=== PATIENT | male | born 1945 | race Caucasian/White ===

== ENCOUNTER 2020-06-16 17:12 | Emergency (ER) | payer OTHER ==
[~2020-06-16] VITALS: Ht 188 cm; Wt 83.9 kg
[~2020-06-16 17:12] MED LIST: Amlodipine Besy10 MG PO; GABA100 PO; METO50ER PO
[2020-06-16 18:00] LABS: BASOPHILS ABSOLUTE AUTO 0.02 K/mm3 (0.00-0.23); BASOPHILS PERCENT AUTO 0 % (0-2); EOSINOPHILS PERCENT AUTO 0 % (0-6); Hematocrit 35.3 % (37.0-53.0); Hemoglobin 11.4 g/dL (13.5-17.5); IMMATURE GRAN ABSOLUTE AUTO 0.08 K/mm3 (0.00-0.10); IMMATURE GRAN PERCENT AUTO 1 % (0-1); LYMPHOCYTES ABSOLUTE AUTO 1.37 K/mm3 (0.84-5.20); LYMPHOCYTES PERCENT AUTO 16 % (21-46); MONOCYTES PERCENT AUTO 8 % (4-13); Mean Corpuscular HGB 29.3 pg (26.0-34.0); Mean Corpuscular HGB Conc 32.3 g/dL (31.5-36.5); Mean Corpuscular Volume 91 fL (80-100); Mean Platelet Volume 8.9 fL (9.1-12.4); NEUTROPHILS PERCENT AUTO 75 % (41-73); Platelet Count 330 K/mm3 (150-400); RDW Coefficient Variation 13.8 % (11.7-14.2); RDW Standard Deviation 46.6 fL (35.1-46.3); Red Blood Cell Count 3.89 M/mm3 (4.30-5.90); White Blood Cell Count 8.77 K/mm3 (4.00-11.30)
[2020-06-16] MEDS ORDERED: LEVSOD150 PO (18:39)
[2020-06-16] MEDS ORDERED: LOSA50 PO ×2 (18:39→18:42)
[2020-06-16] MEDS ORDERED: SYNTHROID50 MCG PO (18:42)
[2020-06-16] MEDS ORDERED: METO50 PO (18:42)
[2020-06-16] MEDS ORDERED: PREGABALIN300 MG PO (18:42)
[2020-06-16 18:44] LABS: Alanine Aminotransfer (ALT/SGP 98 U/L (12-78); Albumin, Blood 2.4 g/dL (3.4-5.0); Albumin/Globulin Ratio 0.6 (0.8-1.8); Alk Phos 107 U/L (50-136); Anion Gap 4 mmol/L (6-16); Aspartate Aminotrans (AST/SGOT 37 U/L (12-37); Bilirubin, Total 0.5 mg/dL (0.1-1.0); Blood Urea Nitrogen 20 mg/dL (8-24); Bun/Creatinine Ratio 23.5 (12.0-20.0); CO2, Blood 29 mmol/L (21-32); Calcium, Blood 8.6 mg/dL (8.5-10.1); Chloride, Blood 105 mmol/L (98-108); Creatinine, Blood 0.85 mg/dL (0.60-1.20); Globulin, Blood 3.8 g/dL (2.2-4.0); Glomerular Filtration Rate >60 (60-); Glucose, Blood 121 mg/dL (70-99); Potassium, Blood 4.5 mmol/L (3.5-5.5); Sodium, Blood 138 mmol/L (136-145); Total Protein, Blood 6.2 g/dL (6.4-8.2)
[2020-06-16] MEDS ORDERED: AMOCLA875 PO (20:25)
== END 2020-06-16 20:45 | disposition home or self-care (01) ==
LOC: ER 17:12
PROVIDERS: Physician Assistant
DX: L03.116 Cellulitis of left lower limb (principal); S81.802A Unspecified open wound, left lower leg, initial encounter; Z79.899 Other long term (current) drug therapy; W01.0XXA Fall on same level from slipping, tripping and stumbling without subsequent striking against object, initial encounter
CPT/HCPCS: 36415; 80053; 83605; 85025; 93971; 96365; 99284-25; J0696

== ENCOUNTER 2023-01-03 01:52 | Day surgery (SDC) | payer OTHER ==
[~2023-01-03 01:52] MED LIST changes: +AMOCLA875 PO; +LEVSOD150 PO; +LOSA50 PO; +METO50 PO; +PREGABALIN300 MG PO; +SYNTHROID50 MCG PO
== END 2023-01-03 23:00 | disposition home or self-care (01) ==
LOC: WOUND 01:52
DX: L03.116 Cellulitis of left lower limb (principal); L97.929 Non-pressure chronic ulcer of unspecified part of left lower leg with unspecified severity; R60.0 Localized edema; I10 Essential (primary) hypertension
CPT/HCPCS: A9270; G0463

== ENCOUNTER 2023-01-22 15:06 | Inpatient (IN) | payer OTHER ==
[~2023-01-22] VITALS: Ht 188 cm; Wt 90.7 kg
[2023-01-22 15:35] LABS: BASOPHILS ABSOLUTE AUTO 0.04 K/mm3 (0.00-0.23); BASOPHILS PERCENT AUTO 0 % (0-2); EOSINOPHILS PERCENT AUTO 0 % (0-6); Hemoglobin 11.5 g/dL (13.5-17.5); IMMATURE GRAN ABSOLUTE AUTO 0.18 K/mm3 (0.00-0.10); IMMATURE GRAN PERCENT AUTO 1 % (0-1); LYMPHOCYTES ABSOLUTE AUTO 1.14 K/mm3 (0.84-5.20); LYMPHOCYTES PERCENT AUTO 6 % (21-46); MONOCYTES ABSOLUTE AUTO 0.51 K/mm3 (0.16-1.47); MONOCYTES PERCENT AUTO 3 % (4-13); Mean Corpuscular HGB 25.6 pg (26.0-34.0); Mean Corpuscular HGB Conc 31.1 g/dL (31.5-36.5); Mean Corpuscular Volume 82 fL (80-100); Mean Platelet Volume 8.5 fL (9.1-12.4); NEUTROPHILS ABSOLUTE AUTO 17.08 K/mm3 (1.96-9.15); NEUTROPHILS PERCENT AUTO 90 % (41-73); Platelet Count 252 K/mm3 (150-400); RDW Coefficient Variation 16.6 % (11.7-14.2); RDW Standard Deviation 50.4 fL (35.1-46.3); Red Blood Cell Count 4.49 M/mm3 (4.30-5.90); White Blood Cell Count 18.95 K/mm3 (4.00-11.30)
[2023-01-22 15:47] LABS: Albumin, Blood 2.8 g/dL (3.4-5.0); Albumin/Globulin Ratio 0.7 (0.8-1.8); Bilirubin, Total 0.8 mg/dL (0.1-1.0); Bun/Creatinine Ratio 19.9 (12.0-20.0); Calcium, Blood 8.4 mg/dL (8.5-10.1); Creatinine, Blood 1.76 mg/dL (0.60-1.20); Globulin, Blood 3.9 g/dL (2.2-4.0); Potassium, Blood 3.8 mmol/L (3.5-5.5); Total Protein, Blood 6.7 g/dL (6.4-8.2)
[2023-01-22 18:37] VITALS: BP 125/65
--- NOTE | 2023-01-22 18:45 | NUR ---
REceived pt to room 339 at 1825. Awake and alert X3, denies pain. VSS. Resp even nonlabored. Incontinent of B&B. Brief changed with smear of stool. Buttock exoriated, scrotal swelling. redness and sores noted. [id number] wound to left multani noted. Pictures obtained with consent from pt. Will report to [place] Rn. Pt girlfriend Toma at bedside.
[2023-01-22 19:44] VITALS: BP 131/57
[2023-01-22] MEDS ORDERED: TOPROL XL50 M1 PO (23:01)
[2023-01-23 04:28] LABS: BASOPHILS ABSOLUTE AUTO 0.05 K/mm3 (0.00-0.23); BASOPHILS PERCENT AUTO 0 % (0-2); EOSINOPHILS ABSOLUTE AUTO 0.06 K/mm3 (0.00-0.68); EOSINOPHILS PERCENT AUTO 0 % (0-6); Hematocrit 33.4 % (37.0-53.0); Hemoglobin 10.5 g/dL (13.5-17.5); IMMATURE GRAN PERCENT AUTO 1 % (0-1); LYMPHOCYTES ABSOLUTE AUTO 1.04 K/mm3 (0.84-5.20); LYMPHOCYTES PERCENT AUTO 6 % (21-46); MONOCYTES ABSOLUTE AUTO 0.45 K/mm3 (0.16-1.47); MONOCYTES PERCENT AUTO 3 % (4-13); Mean Corpuscular HGB 25.6 pg (26.0-34.0); Mean Corpuscular HGB Conc 31.4 g/dL (31.5-36.5); Mean Corpuscular Volume 82 fL (80-100); Mean Platelet Volume 8.7 fL (9.1-12.4); NEUTROPHILS ABSOLUTE AUTO 15.05 K/mm3 (1.96-9.15); NEUTROPHILS PERCENT AUTO 90 % (41-73); Platelet Count 215 K/mm3 (150-400); RDW Standard Deviation 50.4 fL (35.1-46.3); White Blood Cell Count 16.75 K/mm3 (4.00-11.30)
[2023-01-23 04:48] VITALS: BP 107/53
[2023-01-23 04:51] LABS: Albumin, Blood 2.2 g/dL (3.4-5.0); Anion Gap 8 mmol/L (6-16); Blood Urea Nitrogen 31 mg/dL (8-24); Bun/Creatinine Ratio 26.7 (12.0-20.0); CO2, Blood 24 mmol/L (21-32); Chloride, Blood 104 mmol/L (98-108); Creatinine, Blood 1.16 mg/dL (0.60-1.20); Glomerular Filtration Rate 65 (60-); Glucose, Blood 127 mg/dL (70-99); Phosphorus, Blood 3.1 mg/dL (2.5-4.9); Potassium, Blood 3.3 mmol/L (3.5-5.5); Sodium, Blood 136 mmol/L (136-145)
--- NOTE | 2023-01-23 05:08 | NUR ---
SHIFT SUMMARY NOC PT A/O X 3-4. PLEASANT AND COOPERATIVE WITH CARE. PT EDUCATED ON [facility] IGNITION/EXPLOSIVES NON SMOKING POLICY. PT ADMIT FROM ED AT SHIFT CHANGE FOR CELLULITIS IN LLE ALONG WITH LEFTY. PT RECEIVING ANCEF ABX AND 1L 1/2 NS INFUSING @ 100 ML/HR TO IMPROVE RENAL FUNCTION. PT WAS INCONTINENT OF URINE/BM X 2, AND REPORTS BEING CONTINENT BASELINE AT HOME. PT UNABLE TO MOVE LLE WHICH HAS 10CM X 10CM VENOUS ULCER OPEN TO AIR, IT IS SWOLLEN, RED AND HOT TO TOUCH. AWAITING AM LABS FOR RENAL IMPROVEMENT. PT IS CURRENTLY RESTING WITH BED IN LOWEST POSITION, AND CALL LIGHT eCullet.
[2023-01-23 07:36] VITALS: BP 117/57
[2023-01-23 15:05] VITALS: BP 105/53
--- NOTE | 2023-01-23 17:20 | NUR ---
SHIFT SUMMARY: Pt remains A&O X3 this shift. VSS, afebrile. Denies pain. Resp even nonlabored on RA. Incont of B&B. Tolerating diet. Q 2 hour turn. Wound care provided to LLE. DSG CDI. Buttocks excoriation has subsided. Blood cultures pending. No acute distress or c/o. Will continue to monitor.
[2023-01-23 19:43] VITALS: BP 126/59
[2023-01-24 04:52] VITALS: BP 159/77
[2023-01-24 05:26] LABS: BASOPHILS ABSOLUTE AUTO 0.02 K/mm3 (0.00-0.23); BASOPHILS PERCENT AUTO 0 % (0-2); EOSINOPHILS ABSOLUTE AUTO 0.11 K/mm3 (0.00-0.68); EOSINOPHILS PERCENT AUTO 1 % (0-6); Hematocrit 33.4 % (37.0-53.0); Hemoglobin 10.5 g/dL (13.5-17.5); IMMATURE GRAN ABSOLUTE AUTO 0.03 K/mm3 (0.00-0.10); IMMATURE GRAN PERCENT AUTO 0 % (0-1); LYMPHOCYTES ABSOLUTE AUTO 1.31 K/mm3 (0.84-5.20); LYMPHOCYTES PERCENT AUTO 12 % (21-46); MONOCYTES ABSOLUTE AUTO 0.53 K/mm3 (0.16-1.47); MONOCYTES PERCENT AUTO 5 % (4-13); Mean Corpuscular HGB 25.6 pg (26.0-34.0); Mean Corpuscular HGB Conc 31.4 g/dL (31.5-36.5); Mean Corpuscular Volume 82 fL (80-100); Mean Platelet Volume 8.6 fL (9.1-12.4); NEUTROPHILS PERCENT AUTO 82 % (41-73); Platelet Count 197 K/mm3 (150-400); RDW Coefficient Variation 16.6 % (11.7-14.2); RDW Standard Deviation 49.1 fL (35.1-46.3)
[2023-01-24 06:00] LABS: Albumin, Blood 2.2 g/dL (3.4-5.0); Anion Gap 4 mmol/L (6-16); Blood Urea Nitrogen 24 mg/dL (8-24); Bun/Creatinine Ratio 29.2 (12.0-20.0); CO2, Blood 28 mmol/L (21-32); Calcium, Blood 8.4 mg/dL (8.5-10.1); Chloride, Blood 99 mmol/L (98-108); Creatinine, Blood 0.82 mg/dL (0.60-1.20); Glomerular Filtration Rate 90 (60-); Glucose, Blood 102 mg/dL (70-99); Phosphorus, Blood 2.1 mg/dL (2.5-4.9); Potassium, Blood 3.6 mmol/L (3.5-5.5); Sodium, Blood 131 mmol/L (136-145)
--- NOTE | 2023-01-24 06:10 | NUR ---
HYPERTENSIVE, OTHERWISE VSS, AO, PLEASANT. BM THIS MORNING, SOFT/LOOSE. BLOOD CULTURE STILL PENDING. ANTIBIOTICS GIVEN ORDERED. UNEVENTFUL NIGHT. DENIES PAIN, DISCOMFORT. FIRE SAFETY EDUCATION COMPLETED, EXPRESSES UNDERSTANDING.
[2023-01-24 07:15] VITALS: BP 142/69
[2023-01-24 15:00] VITALS: BP 129/67
--- NOTE | 2023-01-24 18:04 | NUR ---
SHIFT SUMMARY PT IS ALERT AND ORIENTED X4. CALM AND COOPERATIVE. PHYSICAL THERAPY WAS IN WITH PT TODAY. PLS SEE NOTES. PT HAS DENIED PAIN AND ANY SOB. PT DENIES SMOKING ANY PRODUCT, PT IS NOT CURRENTLY USING OXYGEN. DURING HOURLY ROUNDING, EDUCATION PROVIDED ON RISKS OF INJURY WHILE USING AN IGNITION SOURCE AROUND OXYGEN. PT VERBALIZES UNDERSTANDING. PT DENIES HAVING ANY IGNITION SOURCES ON HIM OR IN HIS ITEMS. NO VISITORS THIS SHIFT. NO ACUTE CHANGES THIS SHIFT. PROVIDED WOUND CARE ORDERED.
[2023-01-24 19:33] VITALS: BP 120/58
[2023-01-25 02:33] VITALS: BP 132/72
--- NOTE | 2023-01-25 05:07 | NUR ---
SHIFT SUMMARY PATIENT ALERT, PLEASANT AND COOPERATIVE. NO C/O PAIN NOR DISCOMFORT STATED THIS SHIFT. LLE UNDER DSG, C/D/I. CONTINUES ON IV ABX WITHOUT ANY APPARENT ASE NOTED. PIV TO RIGHT AC, SL, PATENT, FLUSHES WELL. PATIENT EDUCATED RE IGNITION SOURCES AND RISK OF INJURY WHILE OXYGEN IN USE, VERBALIZED UNDERSTANDING, DENIES SMOKING. NO ACUTE CHANGES OVERNIGHT, BED LOW, CALL LIGHT IN REACH.
[2023-01-25 05:42] LABS: BASOPHILS ABSOLUTE AUTO 0.02 K/mm3 (0.00-0.23); BASOPHILS PERCENT AUTO 0 % (0-2); EOSINOPHILS PERCENT AUTO 1 % (0-6); Hematocrit 34.7 % (37.0-53.0); Hemoglobin 10.9 g/dL (13.5-17.5); IMMATURE GRAN ABSOLUTE AUTO 0.05 K/mm3 (0.00-0.10); IMMATURE GRAN PERCENT AUTO 1 % (0-1); LYMPHOCYTES ABSOLUTE AUTO 1.24 K/mm3 (0.84-5.20); LYMPHOCYTES PERCENT AUTO 17 % (21-46); MONOCYTES ABSOLUTE AUTO 0.42 K/mm3 (0.16-1.47); MONOCYTES PERCENT AUTO 6 % (4-13); Mean Corpuscular HGB 25.2 pg (26.0-34.0); Mean Corpuscular HGB Conc 31.4 g/dL (31.5-36.5); Mean Corpuscular Volume 80 fL (80-100); Mean Platelet Volume 8.8 fL (9.1-12.4); NEUTROPHILS ABSOLUTE AUTO 5.35 K/mm3 (1.96-9.15); NEUTROPHILS PERCENT AUTO 75 % (41-73); Platelet Count 230 K/mm3 (150-400); RDW Coefficient Variation 16.4 % (11.7-14.2); RDW Standard Deviation 48.2 fL (35.1-46.3); Red Blood Cell Count 4.32 M/mm3 (4.30-5.90); White Blood Cell Count 7.18 K/mm3 (4.00-11.30)
[2023-01-25 06:08] LABS: Bun/Creatinine Ratio 23.8 (12.0-20.0); Calcium, Blood 8.7 mg/dL (8.5-10.1); Creatinine, Blood 0.76 mg/dL (0.60-1.20); Potassium, Blood 3.7 mmol/L (3.5-5.5)
[2023-01-25 07:41] VITALS: BP 122/69
[2023-01-25 14:51] VITALS: BP 136/66
--- NOTE | 2023-01-25 18:21 | NUR ---
SHIFT SUMMARY: NO ACUTE EVENTS. DENIED PAIN. LLE DUSKY AND COOL, DRESSING CHANGED THIS AFTERNOON. WOUND BED HAS DARK RED BLOODY EXUDATE. INCONTINENT OF BLADDER MOST OF THE TIME, ATTENDS IN PLACE. TOLERATING PO INTAKE, GOOD APPETITE.
[2023-01-25 19:51] VITALS: BP 126/59
[2023-01-26 02:52] VITALS: BP 133/60
[2023-01-26 05:01] LABS: BASOPHILS ABSOLUTE AUTO 0.03 K/mm3 (0.00-0.23); BASOPHILS PERCENT AUTO 0 % (0-2); EOSINOPHILS ABSOLUTE AUTO 0.16 K/mm3 (0.00-0.68); EOSINOPHILS PERCENT AUTO 2 % (0-6); Hematocrit 34.1 % (37.0-53.0); Hemoglobin 10.9 g/dL (13.5-17.5); IMMATURE GRAN ABSOLUTE AUTO 0.07 K/mm3 (0.00-0.10); IMMATURE GRAN PERCENT AUTO 1 % (0-1); LYMPHOCYTES ABSOLUTE AUTO 1.58 K/mm3 (0.84-5.20); LYMPHOCYTES PERCENT AUTO 23 % (21-46); MONOCYTES ABSOLUTE AUTO 0.49 K/mm3 (0.16-1.47); MONOCYTES PERCENT AUTO 7 % (4-13); Mean Corpuscular HGB 25.5 pg (26.0-34.0); Mean Corpuscular Volume 80 fL (80-100); Mean Platelet Volume 8.6 fL (9.1-12.4); NEUTROPHILS ABSOLUTE AUTO 4.53 K/mm3 (1.96-9.15); NEUTROPHILS PERCENT AUTO 66 % (41-73); Platelet Count 251 K/mm3 (150-400); RDW Coefficient Variation 16.4 % (11.7-14.2); RDW Standard Deviation 46.9 fL (35.1-46.3); Red Blood Cell Count 4.27 M/mm3 (4.30-5.90); White Blood Cell Count 6.86 K/mm3 (4.00-11.30)
[2023-01-26 05:32] LABS: Bun/Creatinine Ratio 24.4 (12.0-20.0); Calcium, Blood 8.6 mg/dL (8.5-10.1); Creatinine, Blood 0.7 mg/dL (0.60-1.20); Potassium, Blood 3.9 mmol/L (3.5-5.5)
[2023-01-26 08:01] VITALS: BP 137/70
[2023-01-26] MEDS ORDERED: DULO60 PO (13:36)
[2023-01-26] MEDS ORDERED: HYDCHL25 PO (13:37)
[2023-01-26] MEDS ORDERED: Cefadroxil500 MG PO (13:37)
--- NOTE | 2023-01-26 15:23 | NUR ---
SHIFT SUMMARY AND DISCHARGE PATIENT ADMITTED WITH CELLULITIS. PATIENT HAS A CHRONIC WOUND TO [facility] THAT HAS BEEN FOLLOWED BY THE WOUND CLINIC. REPORTS WOUND HAS IMPROVED AND SWELLING GREATLY IMPROVED. SKIN AROUND WOUND SCALY AND DRY. SKIN CLEANSED WITH WOUND CLEANSER, PATTED DRY, CALCIUM ALGINATE TO WOUND BED AND BARRIER CREAM APPLIED TO SKIN AROUND WOUND. LEG WRAPPED WITH KERLIX AND NETTING APPLIED OVER KERLIX. ASSISTED PATIENT WITH DRESSING FOR DISCHARGE. IV DC'D AND CATHETER INTACT. DISCHARGE INSTRUCTIONS REVIEWED WITH PATIENT AND . RX TO BE PICKED UP AT [facility]. HOME HEALTH TO FOLLOW PATIENT AFTER DISCHARGE. FAMILY INFORMED. BELONGINGS GIVEN TO FAMILY AND ROOM CHECK DONE PRIOR TO DISCHARGE.
== END 2023-01-26 15:25 | disposition home health service (06) | DRG 603 ==
LOC: ER 15:06 → MEDS 15:07 → ENPENDDIS 01-26 13:32 → MEDS 01-26 15:25
PROVIDERS: Emergency Medicine; Internal Medicine; ADMIT Family Medicine
DX: L03.116 Cellulitis of left lower limb (principal); N17.9 Acute kidney failure, unspecified; G62.9 Polyneuropathy, unspecified; E03.9 Hypothyroidism, unspecified; F41.9 Anxiety disorder, unspecified; I87.2 Venous insufficiency (chronic) (peripheral); R00.0 Tachycardia, unspecified; S01.21XA Laceration without foreign body of nose, initial encounter; X58.XXXA Exposure to other specified factors, initial encounter; Z79.890 Hormone replacement therapy; Z98.890 Other specified postprocedural states; Z79.899 Other long term (current) drug therapy
CPT/HCPCS: 36415; 73590; 80048; 80053; 80069; 83605; 83735; 85025; 87040; 93005; 93010; 96361; 96365; 96366; 96367; 96372; 96375; 96376; 97110; 97110-CQ; 97161; 97166; 97530; 97535; 99285-25; A9270; G0378; J0690; J1644; J3370; J3480; J7030; J7050

== ENCOUNTER 2023-02-02 01:45 | Day surgery (SDC) | payer OTHER ==
[~2023-02-02 01:45] MED LIST changes: +Cefadroxil500 MG PO; +DULO60 PO; +HYDCHL25 PO; +TOPROL XL50 M1 PO
== END 2023-02-02 22:46 | disposition home or self-care (01) ==
LOC: WOUND 01:45
DX: L03.116 Cellulitis of left lower limb (principal); L97.929 Non-pressure chronic ulcer of unspecified part of left lower leg with unspecified severity; R60.0 Localized edema; I10 Essential (primary) hypertension; I87.2 Venous insufficiency (chronic) (peripheral); I87.312 Chronic venous hypertension (idiopathic) with ulcer of left lower extremity
CPT/HCPCS: A9270

== ENCOUNTER 2023-02-11 05:54 | Day surgery (SDC) | payer OTHER | END 2023-02-11 22:33 | disposition home or self-care (01) | LOC: WOUND | DX: L03.116 Cellulitis of left lower limb (principal); L97.929 Non-pressure chronic ulcer of unspecified part of left lower leg with unspecified severity; I87.312 Chronic venous hypertension (idiopathic) with ulcer of left lower extremity; R60.0 Localized edema; I10 Essential (primary) hypertension; I87.2 Venous insufficiency (chronic) (peripheral) | CPT/HCPCS: 87071; 87075; 87077; 87186; 87205; A9270; G0463 ==

== ENCOUNTER 2023-02-24 02:42 | Day surgery (SDC) | payer OTHER | END 2023-02-24 23:33 | disposition home or self-care (01) | LOC: WOUND 02:42 | DX: I87.312 Chronic venous hypertension (idiopathic) with ulcer of left lower extremity (principal); L97.822 Non-pressure chronic ulcer of other part of left lower leg with fat layer exposed; L03.116 Cellulitis of left lower limb; R60.0 Localized edema; I87.2 Venous insufficiency (chronic) (peripheral); I10 Essential (primary) hypertension | CPT/HCPCS: A9270; G0463 ==

== ENCOUNTER 2023-03-03 01:14 | Day surgery (SDC) | payer OTHER | END 2023-03-03 22:55 | disposition home or self-care (01) | LOC: WOUND 01:14 | DX: I87.312 Chronic venous hypertension (idiopathic) with ulcer of left lower extremity (principal); L97.822 Non-pressure chronic ulcer of other part of left lower leg with fat layer exposed; R60.0 Localized edema; L03.116 Cellulitis of left lower limb; I10 Essential (primary) hypertension; I87.2 Venous insufficiency (chronic) (peripheral) | CPT/HCPCS: A9270 ==

== ENCOUNTER 2023-03-10 04:03 | Day surgery (SDC) | payer OTHER | END 2023-03-10 23:17 | disposition home or self-care (01) | LOC: WOUND 04:03 | DX: I87.312 Chronic venous hypertension (idiopathic) with ulcer of left lower extremity (principal); L97.822 Non-pressure chronic ulcer of other part of left lower leg with fat layer exposed; R60.0 Localized edema; L03.116 Cellulitis of left lower limb; I10 Essential (primary) hypertension; I87.2 Venous insufficiency (chronic) (peripheral) | CPT/HCPCS: A9270; G0463 ==

== ENCOUNTER 2023-03-17 00:17 | Day surgery (SDC) | payer OTHER | END 2023-03-17 22:41 | disposition home or self-care (01) | LOC: WOUND 00:17 | DX: I87.312 Chronic venous hypertension (idiopathic) with ulcer of left lower extremity (principal); S81.802A Unspecified open wound, left lower leg, initial encounter; L03.116 Cellulitis of left lower limb; I10 Essential (primary) hypertension; X58.XXXA Exposure to other specified factors, initial encounter | CPT/HCPCS: A9270; G0463 ==

== ENCOUNTER 2023-03-24 03:46 | Day surgery (SDC) | payer OTHER | END 2023-03-24 22:40 | disposition home or self-care (01) | LOC: WOUND 03:46 | DX: L03.116 Cellulitis of left lower limb (principal); I87.312 Chronic venous hypertension (idiopathic) with ulcer of left lower extremity; L97.822 Non-pressure chronic ulcer of other part of left lower leg with fat layer exposed; R60.0 Localized edema; I10 Essential (primary) hypertension; I87.2 Venous insufficiency (chronic) (peripheral) | CPT/HCPCS: A9270 ==

== ENCOUNTER 2023-03-31 01:37 | Day surgery (SDC) | payer OTHER | END 2023-03-31 22:36 | disposition home or self-care (01) | LOC: WOUND 01:37 | DX: L03.116 Cellulitis of left lower limb (principal); L97.929 Non-pressure chronic ulcer of unspecified part of left lower leg with unspecified severity; I87.312 Chronic venous hypertension (idiopathic) with ulcer of left lower extremity; R60.0 Localized edema; I10 Essential (primary) hypertension; I87.2 Venous insufficiency (chronic) (peripheral) | CPT/HCPCS: A9270 ==

== ENCOUNTER 2023-04-14 02:04 | Day surgery (SDC) | payer OTHER | END 2023-04-14 22:37 | disposition home or self-care (01) | LOC: WOUND 02:04 | DX: L03.116 Cellulitis of left lower limb (principal); I87.312 Chronic venous hypertension (idiopathic) with ulcer of left lower extremity; L97.822 Non-pressure chronic ulcer of other part of left lower leg with fat layer exposed; I10 Essential (primary) hypertension; I87.2 Venous insufficiency (chronic) (peripheral) | CPT/HCPCS: 87071; 87075; 87077; 87186; 87205; A9270; G0463 ==

== ENCOUNTER 2023-04-21 03:11 | Day surgery (SDC) | payer OTHER | END 2023-04-21 23:03 | disposition home or self-care (01) | LOC: WOUND 03:11 | DX: I87.312 Chronic venous hypertension (idiopathic) with ulcer of left lower extremity (principal); L97.929 Non-pressure chronic ulcer of unspecified part of left lower leg with unspecified severity; L97.522 Non-pressure chronic ulcer of other part of left foot with fat layer exposed; R60.0 Localized edema; L03.116 Cellulitis of left lower limb; I10 Essential (primary) hypertension; I87.2 Venous insufficiency (chronic) (peripheral) | CPT/HCPCS: A9270; G0463 ==

== ENCOUNTER 2023-04-28 08:00 | Day surgery (SDC) | payer OTHER | END 2023-04-28 23:59 | disposition home or self-care (01) | LOC: WOUND 08:00 | DX: I87.312 Chronic venous hypertension (idiopathic) with ulcer of left lower extremity (principal); L97.422 Non-pressure chronic ulcer of left heel and midfoot with fat layer exposed; L03.116 Cellulitis of left lower limb; I10 Essential (primary) hypertension | CPT/HCPCS: A9270; G0463 ==

== ENCOUNTER 2023-05-05 01:57 | Day surgery (SDC) | payer OTHER | END 2023-05-05 23:30 | disposition home or self-care (01) | LOC: WOUND 01:57 | DX: I87.312 Chronic venous hypertension (idiopathic) with ulcer of left lower extremity (principal); L97.822 Non-pressure chronic ulcer of other part of left lower leg with fat layer exposed; L97.522 Non-pressure chronic ulcer of other part of left foot with fat layer exposed; L03.116 Cellulitis of left lower limb; R60.0 Localized edema; I10 Essential (primary) hypertension; I87.2 Venous insufficiency (chronic) (peripheral) | CPT/HCPCS: A9270 ==

== ENCOUNTER 2023-05-12 03:31 | Day surgery (SDC) | payer OTHER | END 2023-05-12 22:40 | disposition home or self-care (01) | LOC: WOUND 03:31 | DX: I87.312 Chronic venous hypertension (idiopathic) with ulcer of left lower extremity (principal); L97.422 Non-pressure chronic ulcer of left heel and midfoot with fat layer exposed; L03.116 Cellulitis of left lower limb; I10 Essential (primary) hypertension | CPT/HCPCS: A9270; G0463 ==

== ENCOUNTER 2023-06-02 05:22 | Day surgery (SDC) | payer OTHER | END 2023-06-02 22:46 | disposition home or self-care (01) | LOC: WOUND 05:22 | DX: I87.312 Chronic venous hypertension (idiopathic) with ulcer of left lower extremity (principal); L97.522 Non-pressure chronic ulcer of other part of left foot with fat layer exposed; R60.0 Localized edema; L03.116 Cellulitis of left lower limb; I10 Essential (primary) hypertension; I87.2 Venous insufficiency (chronic) (peripheral) | CPT/HCPCS: A9270; G0463 ==

== ENCOUNTER 2023-06-09 02:10 | Day surgery (SDC) | payer OTHER | END 2023-06-09 22:49 | disposition home or self-care (01) | LOC: WOUND 02:10 | DX: I87.312 Chronic venous hypertension (idiopathic) with ulcer of left lower extremity (principal); L97.929 Non-pressure chronic ulcer of unspecified part of left lower leg with unspecified severity; R60.0 Localized edema; L03.116 Cellulitis of left lower limb; I10 Essential (primary) hypertension; I87.2 Venous insufficiency (chronic) (peripheral) | CPT/HCPCS: A9270; G0463 ==

== ENCOUNTER 2023-06-23 02:39 | Day surgery (SDC) | payer OTHER | END 2023-06-23 22:45 | disposition home or self-care (01) | LOC: WOUND 02:39 | DX: I87.312 Chronic venous hypertension (idiopathic) with ulcer of left lower extremity (principal); L97.522 Non-pressure chronic ulcer of other part of left foot with fat layer exposed; L97.829 Non-pressure chronic ulcer of other part of left lower leg with unspecified severity; L03.116 Cellulitis of left lower limb; R60.0 Localized edema; I10 Essential (primary) hypertension; I87.2 Venous insufficiency (chronic) (peripheral) | CPT/HCPCS: A9270; G0463 ==

== ENCOUNTER 2023-06-30 01:26 | Day surgery (SDC) | payer OTHER | END 2023-06-30 22:45 | disposition home or self-care (01) | LOC: WOUND 01:26 | DX: I87.312 Chronic venous hypertension (idiopathic) with ulcer of left lower extremity (principal); L03.116 Cellulitis of left lower limb; L97.522 Non-pressure chronic ulcer of other part of left foot with fat layer exposed; I10 Essential (primary) hypertension | CPT/HCPCS: A9270; G0463 ==

== ENCOUNTER 2023-07-14 04:55 | Day surgery (SDC) | payer OTHER | END 2023-07-14 22:55 | disposition home or self-care (01) | LOC: WOUND 04:55 | DX: I87.312 Chronic venous hypertension (idiopathic) with ulcer of left lower extremity (principal); L97.522 Non-pressure chronic ulcer of other part of left foot with fat layer exposed; L97.822 Non-pressure chronic ulcer of other part of left lower leg with fat layer exposed; L03.116 Cellulitis of left lower limb; R60.0 Localized edema; I10 Essential (primary) hypertension; I87.2 Venous insufficiency (chronic) (peripheral) | CPT/HCPCS: A9270; G0463 ==

== ENCOUNTER 2023-08-19 03:59 | Day surgery (SDC) | payer OTHER | END 2023-08-19 23:28 | disposition home or self-care (01) | LOC: WOUND 03:59 | DX: L03.116 Cellulitis of left lower limb (principal); I87.312 Chronic venous hypertension (idiopathic) with ulcer of left lower extremity; R60.0 Localized edema; I10 Essential (primary) hypertension; I87.2 Venous insufficiency (chronic) (peripheral); L97.522 Non-pressure chronic ulcer of other part of left foot with fat layer exposed | CPT/HCPCS: G0463 ==

== ENCOUNTER 2023-08-25 01:39 | Day surgery (SDC) | payer OTHER | END 2023-08-25 23:15 | disposition home or self-care (01) | LOC: WOUND 01:39 | DX: L03.116 Cellulitis of left lower limb (principal); L97.522 Non-pressure chronic ulcer of other part of left foot with fat layer exposed; I87.312 Chronic venous hypertension (idiopathic) with ulcer of left lower extremity; I10 Essential (primary) hypertension; I87.2 Venous insufficiency (chronic) (peripheral) | CPT/HCPCS: A9270 ==

== ENCOUNTER 2023-09-09 01:53 | Day surgery (SDC) | payer OTHER | END 2023-09-11 23:17 | disposition home or self-care (01) | LOC: WOUND 01:53 | DX: I87.312 Chronic venous hypertension (idiopathic) with ulcer of left lower extremity (principal); L03.116 Cellulitis of left lower limb; L97.422 Non-pressure chronic ulcer of left heel and midfoot with fat layer exposed; I10 Essential (primary) hypertension; I87.2 Venous insufficiency (chronic) (peripheral) | CPT/HCPCS: G0463 ==

== ENCOUNTER 2023-11-24 02:48 | Day surgery (SDC) | payer OTHER ==
[~2023-11-24 02:48] MED LIST changes: +ATOR80 PO; +CLOP75 PO; +ELIQUIS5 M2 PO; +FAMO20 PO; +JARDIANCE10 MG PO; +MUPIROCIN1 G1 TOP; +Pentoxifylline400 MG PO; +SULFAMETHOXAZO1 EAC1 PO; +VISBIOME 112.51 EACH PO
== END 2023-11-24 22:42 | disposition home or self-care (01) ==
LOC: WOUND 02:48
DX: I87.312 Chronic venous hypertension (idiopathic) with ulcer of left lower extremity (principal); L97.522 Non-pressure chronic ulcer of other part of left foot with fat layer exposed; L97.822 Non-pressure chronic ulcer of other part of left lower leg with fat layer exposed; L03.116 Cellulitis of left lower limb; R60.0 Localized edema; I10 Essential (primary) hypertension; I87.2 Venous insufficiency (chronic) (peripheral)
CPT/HCPCS: G0463

== ENCOUNTER 2023-12-01 03:47 | Day surgery (SDC) | payer OTHER ==
[2023-12-01] MEDS ORDERED: Silver Nitr/Potassium Nitrate 1 EA APPL ONE (14:53)
== END 2023-12-01 23:08 | disposition home or self-care (01) ==
LOC: WOUND 03:47
DX: L03.116 Cellulitis of left lower limb (principal); L97.522 Non-pressure chronic ulcer of other part of left foot with fat layer exposed; I87.312 Chronic venous hypertension (idiopathic) with ulcer of left lower extremity; I10 Essential (primary) hypertension; I87.2 Venous insufficiency (chronic) (peripheral)
CPT/HCPCS: A6213; A9270; G0463

== ENCOUNTER 2024-01-12 12:41 | Inpatient (IN) | payer OTHER ==
[~2024-01-12] VITALS: Ht 188 cm; Wt 84.7 kg
[2024-01-12] MEDS ORDERED: NS 1,000 ML IV SCH ×3 (14:15→16:55)
[2024-01-12] MEDS ORDERED: Vancomycin HCL 1,500 MG in NS 265 ML IV ONE (14:15)
[2024-01-12 14:26] LABS: BASOPHILS ABSOLUTE AUTO 0.04 K/mm3 (0.00-0.23); BASOPHILS PERCENT AUTO 1 % (0-2); EOSINOPHILS ABSOLUTE AUTO 0.11 K/mm3 (0.00-0.68); EOSINOPHILS PERCENT AUTO 1 % (0-6); Hematocrit 44.2 % (37.0-53.0); IMMATURE GRAN ABSOLUTE AUTO 0.03 K/mm3 (0.00-0.10); IMMATURE GRAN PERCENT AUTO 0 % (0-1); LYMPHOCYTES PERCENT AUTO 14 % (21-46); MONOCYTES ABSOLUTE AUTO 0.34 K/mm3 (0.16-1.47); MONOCYTES PERCENT AUTO 4 % (4-13); Mean Corpuscular HGB 25.5 pg (26.0-34.0); Mean Corpuscular HGB Conc 31.7 g/dL (31.5-36.5); Mean Corpuscular Volume 81 fL (80-100); Mean Platelet Volume 8.7 fL (9.1-12.4); NEUTROPHILS ABSOLUTE AUTO 6.77 K/mm3 (1.96-9.15); NEUTROPHILS PERCENT AUTO 80 % (41-73); Platelet Count 305 K/mm3 (150-400); RDW Coefficient Variation 15.5 % (11.7-14.2); RDW Standard Deviation 45.4 fL (35.1-46.3); Red Blood Cell Count 5.48 M/mm3 (4.30-5.90); White Blood Cell Count 8.49 K/mm3 (4.00-11.30)
[2024-01-12 14:38] LABS: Albumin, Blood 3.1 g/dL (3.4-5.0); Albumin/Globulin Ratio 0.8 (0.8-1.8); Bilirubin, Total 0.7 mg/dL (0.1-1.0); Bun/Creatinine Ratio 34.5 (12.0-20.0); Calcium, Blood 9.6 mg/dL (8.5-10.1); Creatinine, Blood 0.87 mg/dL (0.60-1.20); Magnesium, Blood 2.5 mg/dL (1.6-2.4); Potassium, Blood 4.6 mmol/L (3.5-5.5); Total Protein, Blood 7.1 g/dL (6.4-8.2)
[2024-01-12] MEDS ORDERED: Piperacillin/Tazobactam Sod 4.5 GM in NS 100 ML IV SCH (18:00)
[2024-01-12] MEDS ORDERED: Vancomycin HCL 750 MG in NS 100 ML IV ONE (18:00)
--- NOTE | 2024-01-12 19:15 | NUR ---
ADMISSION NOTE MR MILAN WAS ADMITTED FROM ER TO MEDICAL UNIT AT 1800HRS. TRANSFERED VIA STRETCHER/SLIDE SHEET. APPROPRIATE CONVERSATION AND QUESTION ANSWERING. HE DOES NOT KNOW HIS MEDICATIONS AND SAID HIS GIRLFRIEND HAS HIS MEDICATION LIST, MED REC NOT DONE AND THIS INFO WAS PASSED ON TO NIGHT RN. HE HAS MULTIPLE WOUNDS ON ADMISSION, PHOTOGRAPHS TAKEN AND IN THE CHART. ABRASIONS TO FRONT OF RIGHT SHOULDER AND RIGHT RIB AREA, R GROIN SWELLING AND MOIST ABRASION, LEFT HIP 6.5CM OPEN WOUND, LEFT LOWER LEG OPEN WOUND 5X4CM, SCABS TO R KNEE, SMALL OPEN WOUNDS TO BOTH FEET, RIGHT INNER KNEE OPEN WOUND 2.3CM, REDNESS/RASH TO GROIN AREA, BLE REDNESS/CELLULITIS/EDEMA. RIGHT ARM AND HAND IS SWOLLEN AND NUMB, RIGHT HAND DIGITS CONTRACTED AND LIMITED USE/MOBILITY. POOR USE OF EITHER HAND, LEFT HAND IS NOT SWOLLEN BUT MR MILAN HAS DIFFICULTY USING A PEN OR HOLDING A CUP. PLACED ON TELE SR 66 PER [employer]. MR MILAN HAS USED A WHEELCHAIR FOR THE PAST 6 MONTHS, LIVES ALONE IN A SINGLE FLOOR APARTMENT AND HAS CARE GIVERS 3X/WEEK. 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 HE VERBALISED UNDERSTANDING OF FALL PRECAUTIONS, CALL LIGHT USE. BED LOW, CALL LIGHT IN REACH AND BED ALARM ON.
[2024-01-12 20:23] VITALS: BP 126/85
[2024-01-12] MEDS ORDERED: Pregabalin 75 MG Cap PO SCH (21:00)
[2024-01-12] MEDS ORDERED: Apixaban 5 MG Tab PO SCH (21:00)
[2024-01-12] MEDS ORDERED: Famotidine 20 MG Tab PO SCH (21:00)
[2024-01-12] MEDS ORDERED: Pentoxifylline 400 MG TabCR PO SCH (21:00)
[2024-01-13 00:44] LABS: BASOPHILS ABSOLUTE AUTO 0.04 K/mm3 (0.00-0.23); BASOPHILS PERCENT AUTO 0 % (0-2); EOSINOPHILS ABSOLUTE AUTO 0.06 K/mm3 (0.00-0.68); EOSINOPHILS PERCENT AUTO 1 % (0-6); Hematocrit 40.8 % (37.0-53.0); Hemoglobin 12.4 g/dL (13.5-17.5); IMMATURE GRAN ABSOLUTE AUTO 0.02 K/mm3 (0.00-0.10); IMMATURE GRAN PERCENT AUTO 0 % (0-1); LYMPHOCYTES ABSOLUTE AUTO 0.93 K/mm3 (0.84-5.20); LYMPHOCYTES PERCENT AUTO 10 % (21-46); MONOCYTES ABSOLUTE AUTO 0.53 K/mm3 (0.16-1.47); MONOCYTES PERCENT AUTO 5 % (4-13); Mean Corpuscular HGB 25.6 pg (26.0-34.0); Mean Corpuscular HGB Conc 30.4 g/dL (31.5-36.5); Mean Corpuscular Volume 84 fL (80-100); Mean Platelet Volume 9.1 fL (9.1-12.4); NEUTROPHILS ABSOLUTE AUTO 8.25 K/mm3 (1.96-9.15); NEUTROPHILS PERCENT AUTO 84 % (41-73); Platelet Count 215 K/mm3 (150-400); RDW Coefficient Variation 15.4 % (11.7-14.2); RDW Standard Deviation 46.8 fL (35.1-46.3); Red Blood Cell Count 4.85 M/mm3 (4.30-5.90); White Blood Cell Count 9.83 K/mm3 (4.00-11.30)
[2024-01-13 00:58] LABS: Albumin, Blood 2.6 g/dL (3.4-5.0); Albumin/Globulin Ratio 0.7 (0.8-1.8); Bilirubin, Total 0.7 mg/dL (0.1-1.0); Bun/Creatinine Ratio 34.6 (12.0-20.0); C-REACTIVE PROTEIN, EXT RANGE 9.92 mg/dL (0.000-0.300); Calcium, Blood 8.2 mg/dL (8.5-10.1); Creatinine, Blood 0.84 mg/dL (0.60-1.20); Globulin, Blood 3.5 g/dL (2.2-4.0); Potassium, Blood 4.3 mmol/L (3.5-5.5); Total Protein, Blood 6.1 g/dL (6.4-8.2)
[2024-01-13 05:19] VITALS: BP 115/53
--- NOTE | 2024-01-13 05:50 | NUR ---
SHIFT SUMMARY PATIENT IS ALERT AND ORIENTED X3. PATIENT HAS HAD NO ACUTE EVENTS THIS SHIFT. VITAL SIGNS REVIEWED. PATIENT WAS ADMITTED AROUND SHIFT CHANGE. PATIENT IS WHEELCHAIR BOUND AT BASELINE. PATIENT WAS ADMITTED FOR BEING FOUND DOWN, MULTIPLE WOUNDS NOTATED AND PHOTOGRAPHED. PATIENT HAS CELLULITIS AND SWELLING THAT IS WEEPING, MULTIPLE BED CHANGES DONE DUE TO WEEPING. IV FLUIDS INFUSING ORDERED. PATIENT HAS NO COMPLAINTS OF PAIN, NAUSEA, SOB OR VOMITTING THIS SHIFT. BED IN LOCKED AND LOWEST POSITION. WILL MONITOR UNTIL DAY SHIFT.
[2024-01-13] MEDS ORDERED: Levothyroxine Sodium 0.05 MG Tab PO SCH (06:00)
[2024-01-13 07:38] VITALS: BP 140/71
[2024-01-13 07:42] LABS: Bun/Creatinine Ratio 34.8 (12.0-20.0); Calcium, Blood 8.7 mg/dL (8.5-10.1); Creatinine, Blood 0.75 mg/dL (0.60-1.20); Potassium, Blood 4.6 mmol/L (3.5-5.5)
[2024-01-13] MEDS ORDERED: DULoxetine HCL 60 MG Capsule DR PO SCH (09:00)
[2024-01-13] MEDS ORDERED: Clopidogrel Bisulfate 75 MG Tab PO SCH (09:00)
[2024-01-13] MEDS ORDERED: Atorvastatin 40 MG Tab PO SCH (09:00)
[2024-01-13] MEDS ORDERED: Metoprolol Succinate 50 MG TABCR PO SCH (09:00)
[2024-01-13] MEDS ORDERED: Empagliflozin 10 MG TAB PO SCH (09:00)
[2024-01-13] MEDS ORDERED: HYDROcodone 5-APAP 325 TAB PO PRN (10:40)
--- NOTE | 2024-01-13 11:12 | NUR ---
PATIENT HAVING THE URGE TO VOID, BUT NOT VOIDING SCANNED AT 498; CALLED DR. MURRY ADVISED TO STRAIGHT CATH AND FOLLOW STRAIGHT CATH PROTOCOL; ORDERS PLACED. PATIENT REFUSING AT THIS TIME WOULD LIKE TO WAIT UNTIL PAIN IS BETTER AND TRYING VOIDING AGAIN.
[2024-01-13] MEDS ORDERED: Vancomycin HCL 1,000 MG in NS 100 ML IV SCH (13:00)
[2024-01-13 14:29] VITALS: BP 110/86
--- NOTE | 2024-01-13 16:38 | NUR ---
SHIFT SUMMARY: PT IS A&O3-4, MAKES HIS NEEDS KNOWN, AND PLEASANT AND COOPERATIVE WITH CARE. HE WORKED WITH PT AND OT TODAY; DEEMED TO BE A LIFT FOR NOW. MOVED TO LIFT ROOM 354. HE IS A 2 PERSON ASSIST WITH MOST CARE. HE HAS BEEN INCONTIENT; CONDOM CATH PLACED. BED BATH AND WOUND CARE PERFORMED. HE IS RECEIVING IV ANTIBIOTICS AND FLUIDS. HE IS EATING AND DRINKING. HE IS BED, CALL LIGHT WITHIN REACH, NO SIGNS OR SYMPTOMS OF DISTRESS, RESTING-RESP EVEN AND UNLABORED, PLAN OF CARE ONGOING.
--- NOTE | 2024-01-13 18:10 | NUR ---
PATIENT IS VOIDING, BUT IS RETAINING. POST VOID BLADDER SCAN WAS 394; VOIDED AMOUNT WAS 100 ML. PATIENT CONTINUES TO REFUSES TO BE CATHETERIZED.
[2024-01-13 20:04] VITALS: BP 106/58
[2024-01-13] MEDS ORDERED: Miconazole Nitrate 2% 85 GM PWD TOP SCH (21:00)
[2024-01-13] MEDS ORDERED: Lactobacil 2-S.Thermo-Bifido 1 1 Cap PO SCH (21:00)
[2024-01-13] MEDS ORDERED: Arginine/Glutamine/Calcium Hmb 1 Packet PO SCH (21:00)
--- NOTE | 2024-01-14 04:18 | NUR ---
SHIFT SUMMARY PATIENT IS ALERT AND ORIENTED X3. PATIENT HAS HAD NO ACUTE EVENTS THIS SHIFT. VITAL SIGNS REVIEWED. PATIENT HAS BEEN PLEASENT AND COOPERATIVE WITH CARE THIS SHIFT. IV FLUIDS INFUSED ORDERED. PATIENT HAS HAD MULTIPLE BOWEL MOVEMENTS AND HAS BEEN INCONTINENT OF URINE AND BOWEL THIS SHIFT. PATIENT HAS VOIDED EASIER THIS SHIFT. PATIENT HAS NO COMPLAINTS OF PAIN, NAUSEA, SOB OR VOMITTING THIS SHIFT. BED IN LOCKED AND LOWEST POSITION. CALL LIGHT IN PLACE. WILL MONITOR UNTIL SHIFT CHANGE.
[2024-01-14 05:07] LABS: BASOPHILS ABSOLUTE AUTO 0.02 K/mm3 (0.00-0.23); BASOPHILS PERCENT AUTO 0 % (0-2); EOSINOPHILS PERCENT AUTO 1 % (0-6); Hematocrit 35.4 % (37.0-53.0); Hemoglobin 10.9 g/dL (13.5-17.5); IMMATURE GRAN ABSOLUTE AUTO 0.02 K/mm3 (0.00-0.10); IMMATURE GRAN PERCENT AUTO 0 % (0-1); LYMPHOCYTES ABSOLUTE AUTO 1.29 K/mm3 (0.84-5.20); LYMPHOCYTES PERCENT AUTO 16 % (21-46); MONOCYTES ABSOLUTE AUTO 0.35 K/mm3 (0.16-1.47); MONOCYTES PERCENT AUTO 4 % (4-13); Mean Corpuscular HGB 25.6 pg (26.0-34.0); Mean Corpuscular HGB Conc 30.8 g/dL (31.5-36.5); Mean Corpuscular Volume 83 fL (80-100); Mean Platelet Volume 8.9 fL (9.1-12.4); NEUTROPHILS ABSOLUTE AUTO 6.23 K/mm3 (1.96-9.15); NEUTROPHILS PERCENT AUTO 78 % (41-73); Platelet Count 203 K/mm3 (150-400); RDW Coefficient Variation 15.6 % (11.7-14.2); Red Blood Cell Count 4.25 M/mm3 (4.30-5.90); White Blood Cell Count 8.01 K/mm3 (4.00-11.30)
[2024-01-14 05:28] LABS: Albumin, Blood 2.1 g/dL (3.4-5.0); Albumin/Globulin Ratio 0.7 (0.8-1.8); Bilirubin, Total 0.5 mg/dL (0.1-1.0); Bun/Creatinine Ratio 27.5 (12.0-20.0); Calcium, Blood 8.3 mg/dL (8.5-10.1); Creatinine, Blood 0.73 mg/dL (0.60-1.20); Globulin, Blood 3.1 g/dL (2.2-4.0); Potassium, Blood 4.1 mmol/L (3.5-5.5); Total Protein, Blood 5.2 g/dL (6.4-8.2)
[2024-01-14 06:53] VITALS: BP 103/49
[2024-01-14 08:01] VITALS: BP 101/57
[2024-01-14 15:25] VITALS: BP 113/58
[2024-01-14] MEDS ORDERED: Piperacillin/Tazobactam Sod 4.5 GM in NS 100 ML IV SCH (16:00)
--- NOTE | 2024-01-14 18:15 | NUR ---
SHIFT SUMMARY PT AOX4, LETHARGIC MOST OF THE DAY. INCONTINENT OF BOWEL AND BLADDER. BR AT THIS TIME, LIFT TO THE CHAIR. MEDICATED FOR PAIN PER THE EMAR. APPETITE MODERATE, PT TOLERATING PO INTAKE WELL. MEPALEX APPLIED TO WOUNDS T/O LOWER EXTREMITIES. CALLS AND MAKES HIS NEEDS KNOWN. CALL LIGHT WITHIN REACH, BED LOCKED AND IN THE LOWEST POSITION. REPOSITIONED T/O THE SHIFT. WILL REPORT TO ONCOMING NURSE.
[2024-01-14 19:15] VITALS: BP 83/48
[2024-01-15 00:14] LABS: BASOPHILS ABSOLUTE AUTO 0.01 K/mm3 (0.00-0.23); BASOPHILS PERCENT AUTO 0 % (0-2); EOSINOPHILS ABSOLUTE AUTO 0.19 K/mm3 (0.00-0.68); EOSINOPHILS PERCENT AUTO 4 % (0-6); Hematocrit 32.1 % (37.0-53.0); Hemoglobin 9.9 g/dL (13.5-17.5); IMMATURE GRAN ABSOLUTE AUTO 0.01 K/mm3 (0.00-0.10); IMMATURE GRAN PERCENT AUTO 0 % (0-1); LYMPHOCYTES ABSOLUTE AUTO 1.39 K/mm3 (0.84-5.20); LYMPHOCYTES PERCENT AUTO 30 % (21-46); MONOCYTES ABSOLUTE AUTO 0.35 K/mm3 (0.16-1.47); MONOCYTES PERCENT AUTO 8 % (4-13); Mean Corpuscular HGB 25.7 pg (26.0-34.0); Mean Corpuscular HGB Conc 30.8 g/dL (31.5-36.5); Mean Corpuscular Volume 83 fL (80-100); Mean Platelet Volume 8.5 fL (9.1-12.4); NEUTROPHILS ABSOLUTE AUTO 2.73 K/mm3 (1.96-9.15); NEUTROPHILS PERCENT AUTO 58 % (41-73); Platelet Count 169 K/mm3 (150-400); RDW Coefficient Variation 15.8 % (11.7-14.2); RDW Standard Deviation 47.5 fL (35.1-46.3); Red Blood Cell Count 3.85 M/mm3 (4.30-5.90); White Blood Cell Count 4.68 K/mm3 (4.00-11.30)
[2024-01-15 00:34] LABS: Vancomycin, Trough 19.9 ug/mL (5.0-10.0)
[2024-01-15 00:47] LABS: Bun/Creatinine Ratio 27.5 (12.0-20.0); Calcium, Blood 8.5 mg/dL (8.5-10.1); Creatinine, Blood 0.76 mg/dL (0.60-1.20); Potassium, Blood 3.8 mmol/L (3.5-5.5)
--- NOTE | 2024-01-15 03:45 | NUR ---
SHIFT SUMMARY PT. IS A&O X4, PLEASANT AND COOP WITH CARE. IV ABX'S INFUSED ORDERED T/O THIS SHIFT. PRN NORCO ADMINISTERED ORDERED FOR BODY ACHES. NOTED ARMS/HANDS ARE SWOLLEN AND STIFF. ARMS ELEVATED WITH PILLOWS. WOUND DRESSINGS C/D/I.TELE:NORMAL SINUS RHYTHM@57. NS INFUSING ORDERED 150MLS/HR. NO ACUTE EVENTS/DISTRESS NOTED/REPORTED DURING THIS SHIFT. CALL LIGHT IN REACH, BED AT THE LOWEST POSITION, WILL HANDOFF TO THE INCOMING SHIFT NURSE.
--- NOTE | 2024-01-15 05:59 | NUR ---
WOUND DRESSINGS CHANGED ORDERED:LEFT QUIROS, RIGHT INNER KNEE AREA, RIGHT FOREARM, AND FOR REDUCING PRESSURE IN HOSPITAL BED; RIGHT HIP DRESSING 4X4 TO LEFT HIP. AT 0545 DURING THIS FIELD SALES EXECUTIVE.
[2024-01-15 07:51] VITALS: BP 138/73
[2024-01-15 14:44] VITALS: BP 102/49
--- NOTE | 2024-01-15 15:45 | NUR ---
SHIFT SUMMARY: PATIENT A/OX4, CALM, PLEASANT AND COOPERATIVE c CARE. PATIENT DENIES CP/PRESSURE, SOB, N/V, DIZZINESS, NO EVENTS ON TELE THIS SHIFT. PATIENT RECEIVED BEDBATH AND LINEN CHANGED, DRESSING CHANGED TO L LEG PER ORDER, MIPELEX DRESSING ALSO APPLIED FOR PROTECTION AND OPEN SORE; L HIP, R FOREARM, R HIP, R KNEE AND COCCYX, REPOSITIONED T/O SHIFT. PATIENT TOLERATING PO INTAKE WELL, CONDOM CATH IN PLACED FOR INCONTINENT VOID, NO BM THIS SHIFT. PATIENT HAS NO COMPLAINTS OR DENIES NEW CONCERNED THIS SHIFT. VITAL SIGNS REVIEWED. BED ALARM ON FOR SAFETY. CALL LIGHT IN REACH.
[2024-01-15 19:25] VITALS: BP 153/109
[2024-01-16 00:22] LABS: BASOPHILS ABSOLUTE AUTO 0.02 K/mm3 (0.00-0.23); BASOPHILS PERCENT AUTO 0 % (0-2); EOSINOPHILS ABSOLUTE AUTO 0.21 K/mm3 (0.00-0.68); EOSINOPHILS PERCENT AUTO 5 % (0-6); Hematocrit 33.4 % (37.0-53.0); Hemoglobin 10.3 g/dL (13.5-17.5); IMMATURE GRAN ABSOLUTE AUTO 0.03 K/mm3 (0.00-0.10); IMMATURE GRAN PERCENT AUTO 1 % (0-1); LYMPHOCYTES ABSOLUTE AUTO 1.26 K/mm3 (0.84-5.20); LYMPHOCYTES PERCENT AUTO 27 % (21-46); MONOCYTES ABSOLUTE AUTO 0.34 K/mm3 (0.16-1.47); MONOCYTES PERCENT AUTO 7 % (4-13); Mean Corpuscular HGB 25.6 pg (26.0-34.0); Mean Corpuscular HGB Conc 30.8 g/dL (31.5-36.5); Mean Corpuscular Volume 83 fL (80-100); Mean Platelet Volume 8.8 fL (9.1-12.4); NEUTROPHILS ABSOLUTE AUTO 2.84 K/mm3 (1.96-9.15); NEUTROPHILS PERCENT AUTO 61 % (41-73); Platelet Count 186 K/mm3 (150-400); RDW Coefficient Variation 15.7 % (11.7-14.2); RDW Standard Deviation 47.2 fL (35.1-46.3); Red Blood Cell Count 4.03 M/mm3 (4.30-5.90)
[2024-01-16 00:58] LABS: Alanine Aminotransfer (ALT/SGP 80 U/L (12-78); Albumin/Globulin Ratio 0.7 (0.8-1.8); Alk Phos 91 U/L (50-136); Anion Gap 6 mmol/L (3-11); Aspartate Aminotrans (AST/SGOT 206 U/L (12-37); Bilirubin, Total 0.3 mg/dL (0.1-1.0); Blood Urea Nitrogen 27 mg/dL (8-24); Bun/Creatinine Ratio 36.5 (12.0-20.0); CO2, Blood 27 mmol/L (21-32); Calcium, Blood 8.3 mg/dL (8.5-10.1); Chloride, Blood 114 mmol/L (98-108); Creatinine, Blood 0.74 mg/dL (0.60-1.20); Glomerular Filtration Rate 93 (60-); Glucose, Blood 129 mg/dL (70-99); Potassium, Blood 4.2 mmol/L (3.5-5.5); Sodium, Blood 143 mmol/L (136-145); Vancomycin, Trough 21.5 ug/mL (5.0-10.0)
--- NOTE | 2024-01-16 04:37 | NUR ---
SHIFT SUMMARY PT. IS A&O X4, RESTING T/O THIS SHIFT, COOP WITH CARE, PLEASANT.NOTED RIGHT ARM/HAND CONTINUES TO BE SWOLLEN, ELEVATED WITH PILLOWS. NS@150MLS/HR AND IV ABX ADMINISTERED ORDERED. TELE: SINUS@63. AT HS NORCO 5/325MG ADMINISTERED PRN ORDERED FOR BODY PAIN. CONDOM CATH INTACT AND BAG DRAINING YELLOW COLOR URINE WELL, OUTPUT >500ML BY MIDNIGHT. NO ACUTE EVENTS/DISTRESS NOTED/REPORTED DURING THIS SHIFT. BED AT THE LOWEST POSITION, CALL LIGHT IN REACH, Q2 REPOSITIONING T/O THIS SHIFT. WILL HANDOFF TO THE INCOMING SHIFT NURSE.
[2024-01-16 05:41] VITALS: BP 141/82
[2024-01-16] MEDS ORDERED: Vancomycin HCL 1,250 MG in NS 250 ML IV SCH (06:00)
[2024-01-16 08:06] VITALS: BP 138/66
[2024-01-16 14:43] VITALS: BP 136/72
--- NOTE | 2024-01-16 18:10 | NUR ---
SHIFT SUMMARY PT [id number] CARE COMPLETED TO L LEG TODAY. NEW PHOTOS NEEDED TOMORROW 01/17/24. UP TO RECLINER AFTER LUNCH TODAY. REPOSITIONED Q2H AND NEEDED T/O SHIFT. PT WORKED WITH PHYSICAL & OCCUPATIONAL THERAPY TODAY. REMAINS MECHANICAL LIFT AT THIS POINT FOR SAFETY. PLAN TO DC TO SNF PER DC PLANNING. AWAITING RESPONSE FROM SNFS IN [facility]. ONE EPISODE OF INCONT UNFORMED STOOL. NON-LIQUID HOWEVER. NO OTHER ACUTE CHANGES IN ASSESSMENT AT THIS TIME. VS REVIEWED. CALL LIGHT IN REACH. DENIES OTHER NEEDS AT THIS TIME.
[2024-01-16 19:33] VITALS: BP 114/52
[2024-01-17] MEDS ORDERED: NS 250 ML IV PRN (00:05)
[2024-01-17 02:54] VITALS: BP 122/99
--- NOTE | 2024-01-17 03:17 | NUR ---
SHIFT SUMMARY PT IS A&O X4, COOP WITH CARE, AND VERY PLEASANT. NO ACUTE CHANGES/EVENT/DISTRESS/COMPLAINTS DURING THIS SHIFT. ABX INFUSED ORDERED. PT DENIES SOB, PAIN, DISCOMFORT. DRY SKIN-APPLIED LOTION/CREAM ON UE AND LE'S. HEELS ELEVATED AND HEEL PROTECTORS ON. BED AT LOWEST POSITION, CALL LIGHT IN REACH. WILL HANDOFF TO THE INCOMING SHIFT NURSE.
[2024-01-17 06:48] LABS: Vancomycin, Trough 14.2 ug/mL (5.0-10.0)
[2024-01-17 07:26] VITALS: BP 160/83
[2024-01-17 15:52] VITALS: BP 121/49
--- NOTE | 2024-01-17 17:53 | NUR ---
SHIFT SUMMARY PT UP TO CHAIR FOR BREAKFAST & DINNER TODAY. [facility] LIFT PATIENT DUE TO WEAKNESS. PT WORKED WITH PHYSICAL & OCCUPATIONAL THERAPY TODAY. ABLE TO FEED HIMSELF WITH PILLOWS UNDER ARMS AND MODIFIED SPOON. MEDICATED FOR PAIN ONCE TODAY. WOUND CARE COMPLETED & NEW PHOTOS TAKEN TODAY. NO OTHER ACUTE CHANGES IN ASSESSMENT AT THIS TIME. VS REVIEWED. CALL LIGHT IN REACH. DENIES OTHER NEEDS AT THIS TIME.
[2024-01-17 19:09] VITALS: BP 114/54
--- NOTE | 2024-01-18 04:16 | NUR ---
SHIFT SUMMARY PT. IS A&O X4, COOP WITH CARE, PLEASANT. PT. APPEARED WEARY FROM DAY SHIFT OT AND PT APPOINTMENTS. HS PRN NORCO FOR RIGHT ARM PAIN&BODY ACHES 6/10W- WITH GOOD EFFECTIVNESS PER PT.REPORT. NO ACUTE EVENTS DURING THIS SHIFT. UE'S AND LE'S ELEVATED WITH PILLOWS, HEEL PROTECTORS ON AND HEELS FLOATING OFF THE MATTRESS. NOTED PT. HAS A GOOD FLUID INTAKE. CALL LIGHT IN REACH, BED AT THE LOWEST POSITION. WILL HANDOFF TO THE INCOMING SHIFT NURSE.
[2024-01-18 04:40] VITALS: BP 136/72
[2024-01-18 04:51] LABS: BASOPHILS ABSOLUTE AUTO 0.02 K/mm3 (0.00-0.23); BASOPHILS PERCENT AUTO 0 % (0-2); EOSINOPHILS ABSOLUTE AUTO 0.23 K/mm3 (0.00-0.68); EOSINOPHILS PERCENT AUTO 4 % (0-6); Hematocrit 36.9 % (37.0-53.0); Hemoglobin 11.6 g/dL (13.5-17.5); IMMATURE GRAN ABSOLUTE AUTO 0.06 K/mm3 (0.00-0.10); IMMATURE GRAN PERCENT AUTO 1 % (0-1); LYMPHOCYTES ABSOLUTE AUTO 2.06 K/mm3 (0.84-5.20); LYMPHOCYTES PERCENT AUTO 34 % (21-46); MONOCYTES PERCENT AUTO 7 % (4-13); Mean Corpuscular HGB 25.4 pg (26.0-34.0); Mean Corpuscular HGB Conc 31.4 g/dL (31.5-36.5); Mean Corpuscular Volume 81 fL (80-100); NEUTROPHILS ABSOLUTE AUTO 3.25 K/mm3 (1.96-9.15); NEUTROPHILS PERCENT AUTO 54 % (41-73); Platelet Count 186 K/mm3 (150-400); RDW Coefficient Variation 15.8 % (11.7-14.2); RDW Standard Deviation 45.8 fL (35.1-46.3); Red Blood Cell Count 4.56 M/mm3 (4.30-5.90); White Blood Cell Count 6.02 K/mm3 (4.00-11.30)
[2024-01-18 05:21] LABS: Bun/Creatinine Ratio 39.8 (12.0-20.0); Calcium, Blood 8.3 mg/dL (8.5-10.1); Creatinine, Blood 0.68 mg/dL (0.60-1.20); Potassium, Blood 4.1 mmol/L (3.5-5.5)
[2024-01-18 07:29] VITALS: BP 144/69
[2024-01-18] MEDS ORDERED: JUVEN PACKET1 EAC3 PO (12:17)
[2024-01-18] MEDS ORDERED: ATOR80 PO (12:18)
[2024-01-18] MEDS ORDERED: CYMBALTA60 M1 PO (12:19)
--- NOTE | 2024-01-18 17:01 | NUR ---
REPORT RECEIVED VERIFIED A/O X4 VERY PLEASENT AND MAKES NEEDS KNOWN, ASSIST UP TO BEDSIDE FOR BREAKFAST, PT HAVE MULTIPLE BOUTS OF LOOSE STOOLS AND CHANGED, PT WEAK BUT ABLE TO ASSIST WITH TURNING. LEG DRESSING DONE AT 1330 ANTICIPATING GOING TO [facility], 1500 PT LEFT VIA WHEELCHAIR TO [facility] [place] AND REPORT WAS CALLED.
== END 2024-01-18 15:02 | DRG 565 ==
LOC: ER 12:41 → MEDS 12:42 → ENPENDDIS 01-18 11:38 → MEDS 01-18 15:02
PROVIDERS: Emergency Medicine; Internal Medicine; ADMIT Internal Medicine
DX: T79.6XXA Traumatic ischemia of muscle, initial encounter (principal); L03.116 Cellulitis of left lower limb; I25.10 Atherosclerotic heart disease of native coronary artery without angina pectoris; I48.0 Paroxysmal atrial fibrillation; G62.9 Polyneuropathy, unspecified; I10 Essential (primary) hypertension; E03.9 Hypothyroidism, unspecified; I73.9 Peripheral vascular disease, unspecified; I87.2 Venous insufficiency (chronic) (peripheral); W18.30XA Fall on same level, unspecified, initial encounter; F41.9 Anxiety disorder, unspecified; Z98.890 Other specified postprocedural states; Z98.1 Arthrodesis status; I25.2 Old myocardial infarction; Z88.8 Allergy status to other drugs, medicaments and biological substances; Z79.890 Hormone replacement therapy; Z79.899 Other long term (current) drug therapy; W19.XXXA Unspecified fall, initial encounter
CPT/HCPCS: 36415; 73090; 73130; 80048; 80053; 80202; 82550; 83605; 83735; 84484; 85025; 85651; 86140; 86141; 87040; 93005; 93010; 96365; 96366; 96367; 96376; 97110; 97110-CQ; 97112; 97162; 97166; 97530; 97535; 99285-25; A9270; G0378; J2543; J3370; J7030; J7050

== ENCOUNTER → 2024-07-30 | Outpatient (CLI) | payer OTHER ==
[~2024-07-30] MED LIST changes: +CYMBALTA60 M1 PO; +JUVEN PACKET1 EAC3 PO
== END ==
LOC: LAB SHORT 17:24 → LAB 17:24
DX: N39.0 Urinary tract infection, site not specified (principal)
CPT/HCPCS: 87077; 87086; 87186

== ENCOUNTER 2024-08-24 17:35 | Inpatient (IN) | payer OTHER ==
[~2024-08-24] VITALS: Ht 182.9 cm; Wt 92.0 kg
[~2024-08-24 17:35] MED LIST changes: +Lactated Ringer's 1,000 ML IV SCH
[2024-08-24 18:09] LABS: Source, Urine Foley catheter
[2024-08-24 18:17] LABS: Appearance, Urine Clear (Clear); BASOPHILS ABSOLUTE AUTO 0.02 K/mm3 (0.00-0.23); BASOPHILS PERCENT AUTO 0 % (0-2); Bilirubin, Urine Neg (Neg); Blood, Urine Neg (Neg); Color, Urine Yellow (P-Yellow); EOSINOPHILS ABSOLUTE AUTO 0.04 K/mm3 (0.00-0.68); EOSINOPHILS PERCENT AUTO 1 % (0-6); Glucose Qualitative, Urine Neg (Neg); Hematocrit 32.5 % (37.0-53.0); Hemoglobin 10.1 g/dL (13.5-17.5); IMMATURE GRAN ABSOLUTE AUTO 0.02 K/mm3 (0.00-0.10); IMMATURE GRAN PERCENT AUTO 0 % (0-1); Ketones, Urine Neg (Neg); LYMPHOCYTES ABSOLUTE AUTO 1.09 K/mm3 (0.84-5.20); LYMPHOCYTES PERCENT AUTO 16 % (21-46); Leukocyte Esterase, Urine Neg (Neg); MONOCYTES ABSOLUTE AUTO 0.36 K/mm3 (0.16-1.47); MONOCYTES PERCENT AUTO 5 % (4-13); Mean Corpuscular HGB 26.5 pg (26.0-34.0); Mean Corpuscular HGB Conc 31.1 g/dL (31.5-36.5); Mean Corpuscular Volume 85 fL (80-100); Mean Platelet Volume 9.4 fL (9.1-12.4); NEUTROPHILS ABSOLUTE AUTO 5.26 K/mm3 (1.96-9.15); NEUTROPHILS PERCENT AUTO 77 % (41-73); Nitrite, Urine Neg (Neg); Platelet Count 152 K/mm3 (150-400); Protein, Urine Neg (Neg); RDW Coefficient Variation 17.2 % (11.7-14.2); Red Blood Cell Count 3.81 M/mm3 (4.30-5.90); Specific Gravity, Urine 1.015 (1.003-1.022); Urobilinogen, Urine NORM (Normal); White Blood Cell Count 6.79 K/mm3 (4.00-11.30)
[2024-08-24] MEDS ORDERED: Vancomycin HCL 2,000 MG in NS 500 ML IV ONE (18:45)
[2024-08-24 18:47] LABS: International Normalized Ratio 0.96; Prothrombin Time Results 10.3 Sec (9.7-11.5)
[2024-08-24 19:01] LABS: Magnesium, Blood 2.4 mg/dL (1.6-2.4)
[2024-08-24 19:08] LABS: Alanine Aminotransfer (ALT/SGP 69 U/L (12-78); Albumin, Blood 2.9 g/dL (3.4-5.0); Albumin/Globulin Ratio 0.8 (0.8-1.8); Alk Phos 125 U/L (50-136); Anion Gap 10 mmol/L (3-11); Aspartate Aminotrans (AST/SGOT 72 U/L (12-37); Bilirubin, Direct <0.1 mg/dL (0.0-0.3); Bilirubin, Indirect Unable to Calculate mg/dL (0.1-0.7); Bilirubin, Total 0.3 mg/dL (0.1-1.0); Blood Urea Nitrogen 36 mg/dL (8-24); Bun/Creatinine Ratio 48.1 (12.0-20.0); CO2, Blood 27 mmol/L (21-32); Calcium, Blood 9.1 mg/dL (8.5-10.1); Chloride, Blood 109 mmol/L (98-108); Creatinine, Blood 0.75 mg/dL (0.60-1.20); Globulin, Blood 3.5 g/dL (2.2-4.0); Glomerular Filtration Rate 92 (60-); Glucose, Blood 85 mg/dL (70-99); Potassium, Blood 5.1 mmol/L (3.5-5.5); Sodium, Blood 141 mmol/L (136-145); Total Protein, Blood 6.4 g/dL (6.4-8.2)
[2024-08-24 19:38] LABS: Influenza A, PCR NEGATIVE (NEGATIVE); Influenza B, PCR NEGATIVE (NEGATIVE); Resp Syncytial Virus, PCR NEGATIVE (NEGATIVE); SARS-Cov-2 (COVID-19) PCR, MMC NEGATIVE (NEGATIVE)
[2024-08-24] MEDS ORDERED: Acetaminophen 500 MG Tab PO ONE (21:25)
[2024-08-24] MEDS ORDERED: FLU VACC TS2024-25(6MOS UP)/PF 45 MCG/0.5 ML SYRINGE IM ONE (23:50)
[2024-08-24] MEDS ORDERED: Ondansetron HCl 2 MG / ML 2ML Vial IV PRN (23:50)
[2024-08-25] VITALS (7 sets, daily range): BP systolic 106–137; BP diastolic 56–90
[2024-08-25] MEDS ORDERED: Cefepime HCl 2,000 MG in NS 100 ML IV SCH (00:24)
[2024-08-25] MEDS ORDERED: Lactated Ringer's 1,000 ML IV ONE ×2 (00:38→10:10)
[2024-08-25 05:27] LABS: BASOPHILS ABSOLUTE AUTO 0.03 K/mm3 (0.00-0.23); BASOPHILS PERCENT AUTO 0 % (0-2); EOSINOPHILS ABSOLUTE AUTO 0.03 K/mm3 (0.00-0.68); EOSINOPHILS PERCENT AUTO 0 % (0-6); Hematocrit 29.5 % (37.0-53.0); Hemoglobin 9.4 g/dL (13.5-17.5); IMMATURE GRAN ABSOLUTE AUTO 0.03 K/mm3 (0.00-0.10); IMMATURE GRAN PERCENT AUTO 0 % (0-1); LYMPHOCYTES ABSOLUTE AUTO 0.72 K/mm3 (0.84-5.20); LYMPHOCYTES PERCENT AUTO 10 % (21-46); MONOCYTES PERCENT AUTO 7 % (4-13); Mean Corpuscular HGB 26.7 pg (26.0-34.0); Mean Corpuscular HGB Conc 31.9 g/dL (31.5-36.5); Mean Corpuscular Volume 84 fL (80-100); Mean Platelet Volume 9.9 fL (9.1-12.4); NEUTROPHILS ABSOLUTE AUTO 5.83 K/mm3 (1.96-9.15); NEUTROPHILS PERCENT AUTO 82 % (41-73); Platelet Count 147 K/mm3 (150-400); RDW Coefficient Variation 17.3 % (11.7-14.2); RDW Standard Deviation 52.4 fL (35.1-46.3); Red Blood Cell Count 3.52 M/mm3 (4.30-5.90); White Blood Cell Count 7.14 K/mm3 (4.00-11.30)
[2024-08-25 05:43] LABS: Ethanol (Alcohol), Blood, Med <3 mg/dL; Magnesium, Blood 2.3 mg/dL (1.6-2.4)
[2024-08-25 05:44] LABS: Alanine Aminotransfer (ALT/SGP 58 U/L (12-78); Albumin, Blood 2.8 g/dL (3.4-5.0); Albumin/Globulin Ratio 0.8 (0.8-1.8); Alk Phos 112 U/L (50-136); Anion Gap 14 mmol/L (3-11); Aspartate Aminotrans (AST/SGOT 67 U/L (12-37); Bilirubin, Total 0.4 mg/dL (0.1-1.0); Blood Urea Nitrogen 31 mg/dL (8-24); Bun/Creatinine Ratio 32.8 (12.0-20.0); CO2, Blood 25 mmol/L (21-32); Chloride, Blood 112 mmol/L (98-108); Creatinine, Blood 0.94 mg/dL (0.60-1.20); Globulin, Blood 3.4 g/dL (2.2-4.0); Glomerular Filtration Rate 82 (60-); Glucose, Blood 75 mg/dL (70-99); Potassium, Blood 5.5 mmol/L (3.5-5.5); Sodium, Blood 145 mmol/L (136-145); Total Protein, Blood 6.2 g/dL (6.4-8.2)
[2024-08-25 07:42] LABS: U Amphetamine Screen DETECTED; U Barbituate Screen Not Detected; U Benzodiazapine Screen Not Detected; U Buprenorphine Screen Not Detected; U Cannabinoids Screen Not Detected; U Cocaine Screen Not Detected; U Methadone Screen Not Detected; U Methamphetamine Screen DETECTED; U Opiates Screen DETECTED; U Oxycodone Screen Not Detected; U Phencyclidine Screen Not Detected
[2024-08-25] MEDS ORDERED: Enoxaparin 40 MG/0.4 ML SYR SC SCH (09:00)
[2024-08-25] MEDS ORDERED: Furosemide 10 MG/ML 4ML Vial IV SCH (13:00)
[2024-08-25] MEDS ORDERED: ATOR20 PO (15:38)
[2024-08-25] MEDS ORDERED: FURO20 PO (15:40)
[2024-08-25] MEDS ORDERED: POTA10T PO (15:41)
--- NOTE | 2024-08-25 16:42 | NUR ---
ARRIVAL TO UNIT PT ARRIVED TO PCU AT 1455 VIA GURNEY AND ON RA. PT SLID FROK GURNEY TO BED VIA 4 STAFF MEMBERS. WOUNDS OF BLE PHOTOGRAPHED AND IN CHART. PT SOMNOLENT AT ARRIVAL. NOT TRACKING WITH EYES. PT NOT FOLLOWING INSTRUCTIONS TO SQUEEZE HAND. PT MOANS AND GRUNTS PT IS BEING MOVED. PUPILS FIXED AT 5. PT WITHDRAWS HIS HEAD WHEN STAFF WAS ATTEMPTING TO CHECK PUPIL RESPONSE. PT LEGS FIXED WITH FLEXIONI OF HIS HIPS AND KNEES. RESISTANCE NOTED WHEN ATTEMPTING TO MOVE LEGS FOR PHOTOS. PT UNABLE TO FOLLOW INSTRUCTIONS FOR MOVING LOWER EXTREMITIES. PT NON-VERBAL AT THIS TIME, FAMILY ANSWERED HISTORY AMD MED REC QUESTIOINS. PT INTERNAL TEMP ELEVATED PER TEMP TORREZ, SEE VITALS. HR ELEVATED IN THE 100-110'S. LEFT LEG DRESSING REMOVED DUE TO SATURATION AND PHOTOS TAKEN, SEE CHART. LEFT LOWER LEG RED, SWOLLEN AND MD MEDINA AWARE.
[2024-08-25] MEDS ORDERED: Vancomycin HCL 2,000 MG in NS 500 ML IV SCH (18:00)
[2024-08-25] MEDS ORDERED: HYDROmorphone HCl/Pf 1MG SYR IV PRN (20:05)
[2024-08-25] MEDS ORDERED: Arginine/Glutamine/Calcium Hmb 1 Packet PO SCH (21:00)
[2024-08-25] MEDS ORDERED: Pregabalin 75 MG Cap PO SCH (21:00)
[2024-08-25] MEDS ORDERED: Famotidine 20 MG Tab PO SCH (21:00)
[2024-08-25] MEDS ORDERED: Pentoxifylline 400 MG TabCR PO SCH (21:00)
[2024-08-26] VITALS (14 sets, daily range): BP systolic 101–137; BP diastolic 57–92
--- NOTE | 2024-08-26 00:53 | NUR ---
UPDATE: FOR APPROX. 5-10 MIN, PATIENT HAD AN ISOLATED TACHYCARDIC EVENT. HIS HR ELEVATED FROM A BASELINE OF 90'S-100'S TO 140'S-150'S. DURING THIS EPISODE, THERE WAS A MINOR DROP IN BP BY APPROX 10 MMHG. EKG OBTAINED, UNABLE TO CATCH RHYTHM IN TIME. TACHYCARDIA RESOLVED SPONTANEOUSLY WITHOUT INTERVENTION. NO OTHER CHANGES IN PATIENT CONDITION/SYMPTOMS TO NOTE. MD NOTIFIED & AWARE. NO ORDER CHANGES AT THIS TIME.
[2024-08-26 04:37] LABS: BASOPHILS ABSOLUTE AUTO 0.03 K/mm3 (0.00-0.23); BASOPHILS PERCENT AUTO 1 % (0-2); EOSINOPHILS ABSOLUTE AUTO 0.05 K/mm3 (0.00-0.68); EOSINOPHILS PERCENT AUTO 1 % (0-6); Hematocrit 31.1 % (37.0-53.0); Hemoglobin 9.7 g/dL (13.5-17.5); IMMATURE GRAN ABSOLUTE AUTO 0.02 K/mm3 (0.00-0.10); IMMATURE GRAN PERCENT AUTO 0 % (0-1); LYMPHOCYTES ABSOLUTE AUTO 1.22 K/mm3 (0.84-5.20); LYMPHOCYTES PERCENT AUTO 20 % (21-46); MONOCYTES ABSOLUTE AUTO 0.63 K/mm3 (0.16-1.47); MONOCYTES PERCENT AUTO 10 % (4-13); Mean Corpuscular HGB 26.4 pg (26.0-34.0); Mean Corpuscular HGB Conc 31.2 g/dL (31.5-36.5); Mean Corpuscular Volume 85 fL (80-100); Mean Platelet Volume 10.2 fL (9.1-12.4); NEUTROPHILS ABSOLUTE AUTO 4.25 K/mm3 (1.96-9.15); NEUTROPHILS PERCENT AUTO 69 % (41-73); Platelet Count 139 K/mm3 (150-400); RDW Coefficient Variation 17.4 % (11.7-14.2); RDW Standard Deviation 53.2 fL (35.1-46.3); Red Blood Cell Count 3.67 M/mm3 (4.30-5.90)
[2024-08-26 05:03] LABS: Albumin, Blood 2.6 g/dL (3.4-5.0); Albumin/Globulin Ratio 0.7 (0.8-1.8); Bilirubin, Total 0.6 mg/dL (0.1-1.0); Bun/Creatinine Ratio 31.4 (12.0-20.0); Calcium, Blood 9.1 mg/dL (8.5-10.1); Creatinine, Blood 1.02 mg/dL (0.60-1.20); Globulin, Blood 3.9 g/dL (2.2-4.0); Potassium, Blood 4.4 mmol/L (3.5-5.5); Total Protein, Blood 6.5 g/dL (6.4-8.2)
[2024-08-26] MEDS ORDERED: Levothyroxine Sodium 0.05 MG Tab PO SCH (06:00)
[2024-08-26] MEDS ORDERED: D5W-1/2NS 1,000 ML IV SCH (06:15)
--- NOTE | 2024-08-26 06:15 | NUR ---
UPDATE: PT BLOOD GLUCOSE LEVEL 69. THIS RN NOTIFIED DR. DASILVA OF PT GLUCOSE DOWN TRENDING. PATIENT IS NPO, TOO LETHARGIC FOR PO INTAKE, NOT ON FLUIDS. IVF WITH DEXTROSE ORDERED. ADMINISTRATION TO FOLLOW.
[2024-08-26] MEDS ORDERED: DULoxetine HCL 60 MG Capsule DR PO SCH (09:00)
[2024-08-26] MEDS ORDERED: Clopidogrel Bisulfate 75 MG Tab PO SCH (09:00)
[2024-08-26] MEDS ORDERED: Empagliflozin 10 MG TAB PO SCH (09:00)
[2024-08-26] MEDS ORDERED: Atorvastatin 40 MG Tab PO SCH (09:00)
[2024-08-26] MEDS ORDERED: Metoprolol Succinate 50 MG TABCR PO SCH (09:00)
--- NOTE | 2024-08-26 10:22 | NUR ---
AM NOTE: PATIENT LAYING IN BED UPON SHIFT START. OPENING EYES BRIEFLY TO NAME/VOICE/TOUCH. PUPILS EQUAL AND REACTIVE. PATIENT NOT FOLLOWING ANY COMMANDS SUCH SQUEEZING HANDS, STICKING TONGUE OUT, OPENING MOUTH ECT... PATIENT MOVING ARMS AND UPPER EXTREMITIES TO ITCH FACE AND CHEST. NO FACIAL DROOP NOTED. OCCASIONAL SOUNDS MADE BUT NO WORDS MADE OUT. BED REST AT THIS TIME WITH Q2 TURNING AND NEEDED. Q4 NEURO CHECKS. AT TIMES PATIENT RESISTING TURNS AND PUSHING AGAINST STAFF AND SIDE RAILS. ON ROOM AIR SATING MID 90'S. LUNGS SOUNDS CLEAR AND DIM IN BASES. OCCASIONAL GRUNTING WITH TURNS. MOUTH BREATHING. EVEN AND UNLABORED RESPIRATIONS AT REST. RR 18-22. OCCASIONAL DRY COUGH. TELE SHOWING SR/ST WITH HR 90-110'S. SBP 120-130'S. DOES NOT APPEAR TO BE IN ANY CARDIAC DISTRESS. PATIENT RESTING WITH EYE CLOSED. IV FLUIDS INFUSING PER EMAR. PPP. EDEMA NOTED TO BLE AND HANDS. SC LOVENOX GIVEN THIS AM. BOWEL TONES PRESENT. PATIENT NPO AT THIS TIME DUE TO MENTATION. ORAL CARE COMPLETED WITH SUCTION AT BEDSIDE. PATIENT HAS NO TEETH. ATTENDS IN PLACE. TORREZ CATH IN PLACE DRAINING CLEAR/YELLOW URINE TO GRAVITY. CATH CARE COMPLETED THIS AM WITH BED BATH. PATIENT HAS EXCORIATED/RED SKIN NOTED TO BILATERAL GROIN/SCROTUM. SKIN OVERALL DRY/FRAGILE AND SCATTERED WOUNDS. SEE CHART PHOTOS. WOUNDS TO BILATERAL QUIROS/CALF/TOES. SCATTERED SCABBING. REDNESS/PURPLE SKIN NOTED TO LEFT GREATER TROCHANTER. Q2 TURNING AND NEEDED. SEE WOUND CARE ORDERS. ABIEL SEXTON AT BEDSIDE THIS MORNING. THIS RN PROVIDED UPDATED. SON UNAWARE OF PATIENT'S BASELINE OR HOME SITUATION. SON UNABLE TO TELL ME IF ANY OTHER FAMILY IS IN THE AREA. SON STATES PATIENT DOES USE WHEELCHAIR AND "DRUG USE HAS BEEN ONGOING". SON STATES "HE DID THIS TO HIMSELF AND SPENT 20 YEARS IN [place]ISION DUE TO DRUGS". SON WORKS IN [employer] AND HAD TO GO BACK TO WORK LATE MORNING, BUT IS GOING TO TRY AND COME BACK THIS EVENING TO VISIT. BED ALARM IN PLACE. CALL LIGHT IN REACH.
[2024-08-26] MEDS ORDERED: Acetaminophen 650 MG Supp PR PRN (11:10)
[2024-08-26] MEDS ORDERED: ELIQUIS5 M2 PO (11:21)
--- NOTE | 2024-08-26 11:41 | NUR ---
DR. LEZAMA TO BEDSIDE. ORDERS FOR PALLIATIVE CARE CONSULT, NYSTATIN CREAM 1 APPLICATION BID FOR GROIN AND ABDOMINAL FOLDS, TYLENOL NJ 650 MG PRN Q6 FOR FEVER. ORDERS IN PLACE. PALLIATIVE CARE RN TO BEDSIDE AND OBTAINED FAMILY PHONE NUMBERS. KARYNA AHN CALLED, THIS RN PROVIDED UPDATED. ANABELLE TO CALL THIS RN BACK WITH KASIEPiotr [place] PHONE NUMBER.
--- NOTE | 2024-08-26 15:38 | NUR ---
Pt is a 79 y.o. male who was admitted with hypothermia and altered mental status. According to family, the patient was not exposed to cold weather, and had been inside with his heater working properly. According to the chart, the patient was found down at home. However, when I personally spoke to his niece and SADE Rey, she states he had been trying to have a BM on the toilet, and at some point became obtunded with altered mental status. According to family, pt had also been c/o stmoach pain. CT of abd showed no acute findings. He was at least able to follow simple commands initially, but he is no longer following any commands, and remains non-verbal. Family request more time to discuss code status, but state they understand the patient may not improve enough to what he would consider quality of life. They will continue visiting, and Palliative Care will continue visiting, supporting family and patient.
--- NOTE | 2024-08-26 16:40 | NUR ---
SON CARLIE BACK TO BEDSIDE THIS AFTERNOON, THIS RN PROVIDED UPDATE. PATIENT CONTINUES TO BE NONVERBAL, SWEARING ONCE AT STAFF DURING TURNS. NOT FOLLOWING COMMANDS OR SPEAKING. OCCASIONALLY OPENING EYES BRIEFLY. VITAL SIGNS STABLE. IV ABX INFUSING. DRESSING CHANGES COMPLETED. Q6 BLOOD SUGARS. D5 1/2 NS CONTINUES TO INFUSE.
[2024-08-26 17:37] LABS: Vancomycin, Trough 20.3 ug/mL (5.0-10.0)
--- NOTE | 2024-08-26 18:11 | NUR ---
SHIFT SUMMARY: NO ACUTE CHANGES. SEE PREVIOUS NOTES. DR. LEZAMA BY THIS EVENING TO CHECK ON PATIENT, THIS RN AT BEDSIDE FOR ROUNDS. NO NEW ORDERS FOR THIS RN TO PLACE. VITAL SIGNS STABLE. TORREZ CATH CONTINUES TO DRAIN TO GRAVITY. IV FLUIDS INFUSING. TELE SHOWING SR WITH HR 90-100'S. TMAX THIS SHIFT 99.5. WOUNDS CLEANSED AND DRESSINGS CHANGED. BED ALARM IN PLACE.
[2024-08-26] MEDS ORDERED: Nystatin 100,000 Unit/GM CREAM 15 GM TOP SCH (21:00)
[2024-08-26] MEDS ORDERED: Vancomycin HCL 1,000 MG in NS 250 ML IV SCH (22:00)
[2024-08-27] VITALS (9 sets, daily range): BP systolic 91–121; BP diastolic 54–88
[2024-08-27] MEDS ORDERED: Metoprolol Tartrate 1 MG/ML 5 ML VIAL IV PRN (03:10)
[2024-08-27 04:19] LABS: BASOPHILS ABSOLUTE AUTO 0.02 K/mm3 (0.00-0.23); BASOPHILS PERCENT AUTO 0 % (0-2); EOSINOPHILS ABSOLUTE AUTO 0.13 K/mm3 (0.00-0.68); EOSINOPHILS PERCENT AUTO 2 % (0-6); Hematocrit 32.4 % (37.0-53.0); IMMATURE GRAN ABSOLUTE AUTO 0.03 K/mm3 (0.00-0.10); IMMATURE GRAN PERCENT AUTO 1 % (0-1); LYMPHOCYTES ABSOLUTE AUTO 1.74 K/mm3 (0.84-5.20); LYMPHOCYTES PERCENT AUTO 29 % (21-46); MONOCYTES ABSOLUTE AUTO 0.75 K/mm3 (0.16-1.47); MONOCYTES PERCENT AUTO 12 % (4-13); Mean Corpuscular HGB 26.3 pg (26.0-34.0); Mean Corpuscular HGB Conc 30.9 g/dL (31.5-36.5); Mean Corpuscular Volume 85 fL (80-100); NEUTROPHILS ABSOLUTE AUTO 3.42 K/mm3 (1.96-9.15); NEUTROPHILS PERCENT AUTO 56 % (41-73); Platelet Count 122 K/mm3 (150-400); RDW Coefficient Variation 17.2 % (11.7-14.2); RDW Standard Deviation 53.4 fL (35.1-46.3); White Blood Cell Count 6.09 K/mm3 (4.00-11.30)
[2024-08-27 04:50] LABS: Albumin, Blood 2.3 g/dL (3.4-5.0); Albumin/Globulin Ratio 0.6 (0.8-1.8); Bilirubin, Total 0.5 mg/dL (0.1-1.0); Bun/Creatinine Ratio 30.3 (12.0-20.0); Calcium, Blood 8.9 mg/dL (8.5-10.1); Creatinine, Blood 0.93 mg/dL (0.60-1.20); Globulin, Blood 3.8 g/dL (2.2-4.0); Potassium, Blood 3.7 mmol/L (3.5-5.5); Total Protein, Blood 6.1 g/dL (6.4-8.2)
--- NOTE | 2024-08-27 06:06 | NUR ---
SHIFT SUMMARY NO ACUTE CHANGES NOTED OVERNIGHT. PT CONTINUES TO HAVE ALTERED MENTATION. PT ABLE TO OPEN HIS EYES BRIEFLY WITH VOICE BUT AGAIN UNABLE TO HAVE ANY CONVERSATION. RESPONDS TO HIS NAME BEING SAID AND OPENS HIS EYES HOWEVER CLOSES HIS EYES AFTER A FEW MOMENTS AGAIN. PT GIVEN PRN DILAUDID THROUGHOUT NIGHT DUE TO PT GRIMACING AND GROANING. GIVEN WITH GOOD RELIEF. PT TURNED Q2HR. PT CONTINUES TO HAVE D5 1/2 NS RUNNING AT 75CC/HR TO MAINTAIN BGs. BG THROUGHOUT NIGHT STABLE IN 90s. AROUND MIDNIGHT PT HAD SWITCHED FROM AFIB TO AFLUTTER FOR A FEW MOMENTS HR IN 100-120. NOTIFIED AND LOVENOX INCREASED ALONG WITH LOPRESSOR PRN D/T PT BEING UNABLE TO SWALLOW MEDS SAFELY. PT THEN CONVERTED BACK TO AFIB AND HAS BEEN 90-100s. PTS LORE REMAINS IN PLACE PATENT TO GRAVITY. NO FURTHER QUESTIONS OR CONCERNS AT THIS TIME. WILL REPORT TO ONCOMING NURSE.
[2024-08-27] MEDS ORDERED: Enoxaparin 100 MG/ML 1ML SYR SC SCH (08:00)
--- NOTE | 2024-08-27 11:18 | NUR ---
AM NOTE: PATIENT IS MORE ALERT THIS MORNING OPENS EYES AND SAYS "HI" AND "GOODMORNING". TELL ME HIS LAST NAME AND FAMILY MEMBERS NAMES AT BEDSIDE. UNABLE TO TELL ME BIRTHDATE, WHERE HE IS OR WHY HE IS HERE. MOVING UPPER EXTREMITIES TO ITCH FACE. RIGHT HAND/FINGERS CONTRACTED, FAMILY STATES THIS IS HIS BASELINE. WHEELCHAIR BOUND AT [facility] WITH OCCASIONAL STAND AND TRANSFER PER FAMILY. PERRLA. PATIENT KEEPING EYES OPEN WHEN STAFF OR FAMILY IN ROOM. DR. PUENTE TO BEDSIDE THIS AM, THIS RN PRESENT FOR MD LONGORIA. TELE SHOWING AFIB WITH HR 90-100'S. DENIES CHEST PAIN/PRESSURE/PALPITATIONS. SBP 110-120'S. EDEMA NOTED TO BLE. IV FLUIDS INFUSING PER EMAR. LUNG SOUNDS CLEAR AND DIM IN BASES. OCCASIONAL DRY COUGH NOTED. EVEN AND UNLABORED RESPIRATIONS. SATING MID 90'S ON ROOM AIR. BOWEL TONES PRESENT THROUGHOUT. TORREZ CATH IN PLACE DRAINING CLEAR/YELLOW URINE TO GRAVITY. IV LASIX GIVEN PER EMAR THIS AM. ATTENDS IN PLACE. SCROTUM EXCORIATED AND WEEPING. BILATERAL GROIN RED AND YEASTY, NYSTATIN CREAM APPLIED. BED BATH THIS AM. ORAL CARE WITH GREEN SUCTION SWABS. DENTURES PLACED AND PATIENT ABLE TO COMMUNICATE BETTER. SKIN OVERALL DRY, FRAGILE AND SCATTERED WOUNDS TO BLE/FEET/TOES. SCATTERED BRUISING AND SCABS. FAMILY REMAINS AT BEDSIDE. CALL LIGHT IN REACH. BED ALARM IN PLACE.
[2024-08-27] MEDS ORDERED: Peg 400/Hypromellose/Glycerin 15 DROP/ML BTL BOTHEYES PRN (12:10)
--- NOTE | 2024-08-27 15:20 | NUR ---
Spoke with pt's SADE Rey this morning. She states she and the patient have had conversations surrounding goals of care recently, and the patient continues to want to remain a full code. Bedside RN notified. Pt appears to be slightly improved from yesterday. Will continue to support family and patient.
--- NOTE | 2024-08-27 18:18 | NUR ---
SHIFT SUMMARY: PATIENTS MENTATION CONTINUES TO IMPROVE. MORE ALERT AND TALKING WITH STAFF FOR LONGER PERIODS OF TIME. CONTINUES TO MAINLY ANSWER YES AND NO QUESTIONS. STILL UNABLE TO TELL ME WHERE HE IS OR WHY HE IS HERE. ABLE TO TELL ME NAME AND OCCASIONALLY SAYING HIS BIRTHDATE. STATES HE IS IN "NO PAIN". CONTINUING TO TURN EVERY 2 HOURS AND NEEDED. WOUND CARE COMPLETED TODAY. TELE SHOWING AFIB WITH HR 90-100'S. ONE EPISODE OF HR SUSTAINING ABOVE 110 AND IV LOPRESSOR GIVEN X1. IV ABX INFUSED. REMAINS NPO DUE TO MENTATION AND ASPIRATION RISK AT THIS TIME. CONTINUES ON ROOM AIR. VITAL STABLE. TMAX 99.5. BED BATH COMPLETED TODAY. FAMILY AT BEDSIDE THROUGHOUT THE MORNING AND UPDATED BY THIS RN. CALL LIGHT AND BED ALARM IN PLACE.
[2024-08-27 21:38] LABS: Vancomycin, Trough 25.7 ug/mL (5.0-10.0)
[2024-08-28] MEDS ORDERED: LORazepam 2 MG/ML 1ML Injection IV ONE ×2 (01:40→20:50)
[2024-08-28 03:26] VITALS: BP 143/85
--- NOTE | 2024-08-28 04:29 | NUR ---
SHIFT SUMMARY PT MORE ALERT THIS EVENING. ABLE TO CONVERSE WITH THIS NURSE AND PRODUCE FULL SENTENCES. PT ORIENTED TO PERSON AND SELF. PTs BPs STABLE, ON RA >94%. PT ON TELE IN AFIB. STARTED TO SUSTAIN >110 HR X1 LOPRESSOR GIVEN WITH GOOD EFFECT UNTIL AN HOUR LATER PT STARTED TO BECOME INCREASINGLY RESTLESS AND AGITATED. PT STARTED YELLING IN ROOM AND SWEARING ALTHOUGH NOBODY WAS IN THE ROOM. PT DENIES ANY VISUAL OR AUDIBLE HALLUCINATIONS. PT DENIES PAIN OR SOB. PT STARTED TO ATTEMPT TO GET OUT OF BED. HR STARTED TO RISE AGAIN TOUCHING 130s AND SUSTAINING >110. MD NOTIFIED AND REQUESTED ONE TIME DOSE OF ATIVAN TO HELP AGITATION, GIVEN WITH GOOD RELIEF AND PTs HR BEGAN TO DECREASE UNTIL AN HR LATER AGAIN PTs HR BEGAN TO SUSTAIN >110s. X1 LOPRESSOR GIVEN ONCE AGAIN AND PTs HR STABALIZED 90s-100s. PT CONTINUES TO BE DISORIENTED AND YELLING OUT SWEAR WORDS. PT ABLE TO FOLLOW COMMANDS AND SQUEEZE MY HANDS. PT BEING TURNED Q2HR. LOVENOX AND ABX GIVEN PER SEP. NO FURTHER QUESTIONS OR CONCERNS AT THIS TIME. BED ALARM SET. WILL REPORT TO ONCOMING NURSE.
[2024-08-28 05:13] LABS: BASOPHILS ABSOLUTE AUTO 0.02 K/mm3 (0.00-0.23); BASOPHILS PERCENT AUTO 0 % (0-2); EOSINOPHILS ABSOLUTE AUTO 0.13 K/mm3 (0.00-0.68); EOSINOPHILS PERCENT AUTO 2 % (0-6); Hematocrit 33.4 % (37.0-53.0); Hemoglobin 10.3 g/dL (13.5-17.5); IMMATURE GRAN ABSOLUTE AUTO 0.02 K/mm3 (0.00-0.10); IMMATURE GRAN PERCENT AUTO 0 % (0-1); LYMPHOCYTES ABSOLUTE AUTO 1.44 K/mm3 (0.84-5.20); LYMPHOCYTES PERCENT AUTO 21 % (21-46); MONOCYTES ABSOLUTE AUTO 0.55 K/mm3 (0.16-1.47); MONOCYTES PERCENT AUTO 8 % (4-13); Mean Corpuscular HGB 25.9 pg (26.0-34.0); Mean Corpuscular HGB Conc 30.8 g/dL (31.5-36.5); Mean Corpuscular Volume 84 fL (80-100); NEUTROPHILS ABSOLUTE AUTO 4.72 K/mm3 (1.96-9.15); NEUTROPHILS PERCENT AUTO 69 % (41-73); Platelet Count 136 K/mm3 (150-400); RDW Coefficient Variation 16.5 % (11.7-14.2); RDW Standard Deviation 50.6 fL (35.1-46.3); Red Blood Cell Count 3.98 M/mm3 (4.30-5.90); White Blood Cell Count 6.88 K/mm3 (4.00-11.30)
[2024-08-28 05:31] LABS: Albumin, Blood 2.4 g/dL (3.4-5.0); Albumin/Globulin Ratio 0.6 (0.8-1.8); Bilirubin, Total 0.5 mg/dL (0.1-1.0); Bun/Creatinine Ratio 25.8 (12.0-20.0); Creatinine, Blood 0.89 mg/dL (0.60-1.20); Globulin, Blood 3.8 g/dL (2.2-4.0); Potassium, Blood 3.6 mmol/L (3.5-5.5); Total Protein, Blood 6.2 g/dL (6.4-8.2)
[2024-08-28] MEDS ORDERED: Vancomycin HCL 750 MG in NS 250 ML IV SCH (06:00)
--- NOTE | 2024-08-28 07:30 | NUR ---
ASSUMPTION OF CARE: THIS RN ASSUMING CARE OF PT AFTER REPORT FROM NOC RN AT 0700. PT IS RESPONSIVE TO THIS RN WHEN COMMUNICATING WITH PT IN ROOM HOWEVER PT IS ALTERED. HE IS AX0 TO SELF. UNABLE TO STATE WHERE HE IS/YEAR/SITUATION. HE RESPONDS TO YES AND NO QUESTIONS. HE IS YELLING INCOHERENTLY IN ROOM, CURSING. PT IN A-FIB 110-120S MANAGED BY IV METOPROLOL. HE IS NOT REPORTING ANY C/P. MILD EDEMA, MANAGED WITH LASIX. HE IS ON RA SATTING 97%. LUNG SOUNDS DIMINSHED BUT CLEAR. PT DIAPHORETIC. HE HAS TORREZ CATH PLACED. DRAINING TO GRAVITY. HE HAS CHRONIC WOUNDS TO BLE. SEE WOUND ASSESMENT IN CHART. IV ABX FOR TX OF WOUNDS. NPO D/T SOMULENT BEHAVIOR, AWAITS SPEECH EVAL. PT TO GO TO CT FOR HEAD SCAN THIS AM. PLAN TO CARE FOR PT AND MANAGE SX WHILE COMPLETING MD ORDERS T/O THE DAY.
[2024-08-28 09:05] VITALS: BP 119/75
[2024-08-28 11:22] VITALS: BP 130/72
[2024-08-28 15:00] VITALS: BP 126/71
--- NOTE | 2024-08-28 17:22 | NUR ---
PCU DAY SHIFT SUMMARY: PT HAS HAD NO ACUTE CHANGES T/O THE DAY. HE REMAINS TO BE AGITATED AND YELLING OUT CONTINUOUSLY. HE YELLS THINGS THAT DO NOT MAKE SENSE SUCH "THE JENKINS" "NO AIR", AND OTHER CURSE WORDS. HE HAS BEEN COOPERATIVE WITH CARE. HAS NOT PULLED ANY LINES OR CORDS. HE IS AXO TO SELF. HE HAD REGULAR DIET PUT IN BUT HAS DECLINED ANY FOOD OR DRINK. HE HAS NS RUNNING AT 75ML/HR FOR HYDRATION THROUGH 18 IN [facility]. PT CONTINUES TO BE IN A-FIB WITH RATES 100-120S. 2 DOSES OF LOPRESSOR IV GIVEN. LUNG SOUNDS CLEAR AND NO PROBLEMS WITH OXYGENATION. NO BM TODAY BUT TORREZ DRAINING WELL TO GRAVITY. WOUND CARE COMPLETE TO BLE. PT TOLERATED WELL. IV ABX HAVE BEEN GIVEN FOR INCREASED WBC. PT HAS BEEN HAVING ELEVATED TEMPS UP TO 100.0. SUBDURAL HEMMORHAGE FOUND ON CT THIS AM. PLAN OF CARE WILL BE DETERMINED ON PT TRENDING MENTATION OVER THE NEXT FEW DAYS. FAMILY INVOLVED IN CARE. WILL CONTINUE TO COMPLETE PT CARE UNTIL REPORT TO BEATRICE RN.
[2024-08-28 20:13] VITALS: BP 151/68
--- NOTE | 2024-08-28 20:23 | NUR ---
ASSUMED CARE PT IS A&O TO SELF ONLY AT THIS TIME. PT NOT COOPERATIVE W/ CARE AND REPEATEDLY YELLING OUT "THEY'RE TRYING TO KILL ME". JESSICA. RESIDENT CALLED ABOUT PT'S AGITATION, HEART RATE IN THE 120-130'S, AND PT BEING ASPIRATION RISK AND HAVING NOT TAKEN ANY SCHEDULED MEDS FOR SEVERAL DAYS. RESIDENT STATED SHE WILL LOOK IN PT'S CHART. NO NEW ORDERS AT THIS TIME. TORREZ CATHETER PATENT AND DRAINING TO GRAVITY. BED ALARM ON.
--- NOTE | 2024-08-28 20:56 | NUR ---
UPDATE RESIDENT BY W/ ORDERS FOR 0.5MG ATIVAN OT AND BMP/MAG LEVELS BEFORE DECIDING ON PLAN FOR RATE CONTROL.
[2024-08-28 22:00] LABS: Bun/Creatinine Ratio 25.3 (12.0-20.0); Calcium, Blood 8.9 mg/dL (8.5-10.1); Creatinine, Blood 0.83 mg/dL (0.60-1.20); Potassium, Blood 3.3 mmol/L (3.5-5.5)
[2024-08-28] MEDS ORDERED: Potassium Chl 20MEQ/Water100ML 100 ML IV SCH (22:15)
[2024-08-28] MEDS ORDERED: Metoprolol Tartrate 1 MG/ML 5 ML VIAL IV PRN (22:15)
--- NOTE | 2024-08-28 22:24 | NUR ---
UPDATE RESIDENT CALLED W/ LAB VALUES. ORDERS FOR LOPRESSER IV PUSH IF HR >130; KCL 40MEQ IV.
[2024-08-28] MEDS ORDERED: Potassium Chloride 40 MEQ in NS 250 ML IV ONE (22:30)
[2024-08-29] VITALS (7 sets, daily range): BP systolic 118–167; BP diastolic 60–90
[2024-08-29] MEDS ORDERED: LORazepam 2 MG/ML 1ML Injection IV ONE (03:10)
[2024-08-29 05:19] LABS: BASOPHILS ABSOLUTE AUTO 0.03 K/mm3 (0.00-0.23); BASOPHILS PERCENT AUTO 0 % (0-2); EOSINOPHILS ABSOLUTE AUTO 0.14 K/mm3 (0.00-0.68); EOSINOPHILS PERCENT AUTO 2 % (0-6); Hematocrit 34.4 % (37.0-53.0); Hemoglobin 10.5 g/dL (13.5-17.5); IMMATURE GRAN ABSOLUTE AUTO 0.05 K/mm3 (0.00-0.10); IMMATURE GRAN PERCENT AUTO 1 % (0-1); LYMPHOCYTES ABSOLUTE AUTO 1.72 K/mm3 (0.84-5.20); LYMPHOCYTES PERCENT AUTO 25 % (21-46); MONOCYTES ABSOLUTE AUTO 0.76 K/mm3 (0.16-1.47); MONOCYTES PERCENT AUTO 11 % (4-13); Mean Corpuscular HGB 25.9 pg (26.0-34.0); Mean Corpuscular HGB Conc 30.5 g/dL (31.5-36.5); Mean Corpuscular Volume 85 fL (80-100); Mean Platelet Volume 10.4 fL (9.1-12.4); NEUTROPHILS ABSOLUTE AUTO 4.09 K/mm3 (1.96-9.15); NEUTROPHILS PERCENT AUTO 60 % (41-73); Platelet Count 156 K/mm3 (150-400); RDW Coefficient Variation 16.6 % (11.7-14.2); RDW Standard Deviation 51.5 fL (35.1-46.3); Red Blood Cell Count 4.05 M/mm3 (4.30-5.90); White Blood Cell Count 6.79 K/mm3 (4.00-11.30)
[2024-08-29] MEDS ORDERED: Haloperidol Lactate Inj. 5 MG/ML Injection IM PRN (05:25)
[2024-08-29 06:00] LABS: Alanine Aminotransfer (ALT/SGP 47 U/L (12-78); Albumin, Blood 2.4 g/dL (3.4-5.0); Albumin/Globulin Ratio 0.6 (0.8-1.8); Alk Phos 100 U/L (50-136); Anion Gap 9 mmol/L (3-11); Aspartate Aminotrans (AST/SGOT 117 U/L (12-37); Bilirubin, Total 0.6 mg/dL (0.1-1.0); Blood Urea Nitrogen 20 mg/dL (8-24); Bun/Creatinine Ratio 24.6 (12.0-20.0); CO2, Blood 28 mmol/L (21-32); Calcium, Blood 8.8 mg/dL (8.5-10.1); Chloride, Blood 114 mmol/L (98-108); Creatinine, Blood 0.81 mg/dL (0.60-1.20); Glomerular Filtration Rate 90 (60-); Glucose, Blood 94 mg/dL (70-99); Potassium, Blood 3.6 mmol/L (3.5-5.5); Sodium, Blood 147 mmol/L (136-145); Total Protein, Blood 6.4 g/dL (6.4-8.2); Vancomycin, Trough 20.6 ug/mL (5.0-10.0)
--- NOTE | 2024-08-29 06:07 | NUR ---
SHIFT SUMMARY NEURO UNCHANGED W/ PT ORIENTED TO SELF ONLY; AGITATED AND YELLING OUT "THEY'RE TRYING TO KILL ME". RESIDENT AND HOSPITALIST AWARE W/ ORDERS FOR ATIVAN TWICE TONIGHT AND PRN HALDOL ORDERED THIS AM. HR AFIB 100-120'S W/ ORDERS FOR LOPRESSER PUSH IF HR >130. BP AND SATS STABLE. NO OTHER EVENTS OVERNIGHT. RESTING QUIETLY AT THIS TIME.
[2024-08-29] MEDS ORDERED: Vancomycin HCL 1,250 MG in NS 250 ML IV SCH (07:30)
[2024-08-29] MEDS ORDERED: Lactated Ringer's 1,000 ML IV SCH (07:45)
--- NOTE | 2024-08-29 10:19 | NUR ---
UPDATE PT'S FAMILY, KELTON CALLED FOR UPDATE. UPDATE GIVEN. OK PER SANTOS FOR FRIENDS TO VISIT.
[2024-08-29] MEDS ORDERED: Glucose Oral Gel 15 GM TUBE PO ONE (11:25)
[2024-08-29] MEDS ORDERED: Dextrose 50% 50 ML Vial IV PRN (11:25)
[2024-08-29] MEDS ORDERED: Glucose Oral Gel 15 GM TUBE PO PRN (11:30)
--- NOTE | 2024-08-29 11:49 | NUR ---
UPDATE PT CBG 67. CALL PLACED TO MD. CHAKRABORTY W/ ORDERS FOR GLUCOSE GEL AND TO RECHECK CBG IN 1 HR.
[2024-08-29] MEDS ORDERED: OLANZapine ODT 5 MG Tab MM PRN (11:50)
[2024-08-29] MEDS ORDERED: Valproic Acid Syrup 250MG / 5ML 1 ML PO SCH (12:00)
[2024-08-29] MEDS ORDERED: TPN Consult Notification XX ONE (13:00)
[2024-08-29] MEDS ORDERED: D5W-LR 1,000 ML IV SCH (13:05)
[2024-08-29] MEDS ORDERED: Parenteral Electolytes 40 ML,Potassium Phosphate Dibasic 30 MM,Multivitamins 10 ML,ZINC... IV SCH (17:00)
--- NOTE | 2024-08-29 18:06 | NUR ---
SHIFT SUMMARY PT A&O, ORIENTED TO SELF. REPEATS BACK WORDS, ABLE TO FOLLOW COMMAND 'STICK YOUR TONGUE OUT' BUT NOT THINGS LIKE 'STRAIGHTEN LEG. SP02>90%ON RA. TELEMTRY SHOWS AFIB, HR 110'-120'S. CBG LOW THIS SHIFT, SEE PREVIOUS NOTE. PG PLACED, TPN STARTED PER EMAR. TORREZ CATHETER DRAINING TO GRAVITY. BM X2 THIS SHIFT. C/D ATTENDS IN PLACE. BED BATH GIVEN. WOUND DRESSINGS CHANGED ACCORDING TO WOUND CARE ORDERS. Q2H REPOSITIONING. DENTAL HYGINENE IN ROOM TO ASSESS. ORAL CARE DONE THIS SHIFT. SPEECH THERAPY TO EVALUATE PT /. FAMILY IN ROOM TO SEE PT THIS AFTERNOON. PT CURRENTLY NAPPING, LISTENING TO INSTRUMENTAL MUSIC. CALL LIGHT IN REACH.
[2024-08-30] MEDS ORDERED: LORazepam 2 MG/ML 1ML Injection IV ONE (01:35)
--- NOTE | 2024-08-30 03:45 | NUR ---
REPORT GIVEN TO MERVAT KAUFFMAN TO ASSUME CARE OF PT AT THIS TIME. PT RESTING IN BED WITHOUT ACUTE DISTRESS.
--- NOTE | 2024-08-30 03:59 | NUR ---
ASSUMED CARE OF PT DUE TO BEHAVIORS TOWARDS PREVIOUS NURSE
--- NOTE | 2024-08-30 05:03 | NUR ---
PPN LINE INFILTRATED, PHARMACY NOTIFIED, PHLEBOTOMY NOTIFIED.
--- NOTE | 2024-08-30 05:04 | NUR ---
SHIFT SUMMARY PT HAS RESTED OFF AND ON T/O THE NIGHT. REMAINS CONFUSED, SPEECH IS RAMBLED, JUMPS FROM TOPIC TO TOPIC. YELLS AT STAFF WHEN PERFORMING CARE WITH EXPLETIVES AND OBSCENITIES. PT IS NOT DIRECTABLE, AND RESISTS CARE. BECOMES HIGHLY AGITATED WITH ANY AMOUNT OF CARE, AND CANNOT BE REDIRECTED OR CALMED DOWN. WHEN CARE IS NOT BEING PERFORMED PT RESTS OFF AND ON AND OCCASIONALLY WAKES UP TALKING TO HIMSELF. SECURITY WAS PRESENT AT ONE POINT IN THE SHIFT, SHORTLY AFTER MIDNIGHT TO ASSIST STAFF DUE TO PT INCREASED LEVEL OF AGITATION. PT CONTINUES ON IV DEPAKOTE FOR AGITATION. IV NUTIRTION INFUSING. NPO, PENDING SWALLOW EVAL. VITALS ARE STABLE, RATE IS CONTROLLED ON TELE. REPORT HANDED OVER TO MERVAT AFTER 0300 TO ASSUME CARE OF PT. PT RESTING IN BED WITHOUT DISTRESS AT THE TIME OF HANDOVER.
[2024-08-30 05:15] VITALS: BP 135/94
--- NOTE | 2024-08-30 05:25 | NUR ---
DR. LEE NOTIFIED OF INFILTRATION AND REQUESTED TO COME TO BEDSIDE PER PHARMACIST REQUEST. NO ORDERS AT THIS TIME.
[2024-08-30] MEDS ORDERED: LORazepam 2 MG/ML 1ML Injection IV PRN ×2 (05:50→15:25)
[2024-08-30 05:54] LABS: BASOPHILS ABSOLUTE AUTO 0.04 K/mm3 (0.00-0.23); BASOPHILS PERCENT AUTO 0 % (0-2); EOSINOPHILS ABSOLUTE AUTO 0.18 K/mm3 (0.00-0.68); EOSINOPHILS PERCENT AUTO 2 % (0-6); Hematocrit 39.5 % (37.0-53.0); Hemoglobin 12.3 g/dL (13.5-17.5); IMMATURE GRAN ABSOLUTE AUTO 0.06 K/mm3 (0.00-0.10); IMMATURE GRAN PERCENT AUTO 1 % (0-1); LYMPHOCYTES ABSOLUTE AUTO 1.97 K/mm3 (0.84-5.20); LYMPHOCYTES PERCENT AUTO 19 % (21-46); MONOCYTES ABSOLUTE AUTO 0.86 K/mm3 (0.16-1.47); MONOCYTES PERCENT AUTO 8 % (4-13); Mean Corpuscular HGB 26.3 pg (26.0-34.0); Mean Corpuscular HGB Conc 31.1 g/dL (31.5-36.5); Mean Corpuscular Volume 84 fL (80-100); Mean Platelet Volume 9.5 fL (9.1-12.4); NEUTROPHILS ABSOLUTE AUTO 7.24 K/mm3 (1.96-9.15); NEUTROPHILS PERCENT AUTO 70 % (41-73); Platelet Count 202 K/mm3 (150-400); RDW Coefficient Variation 16.5 % (11.7-14.2); RDW Standard Deviation 50.4 fL (35.1-46.3); Red Blood Cell Count 4.68 M/mm3 (4.30-5.90); White Blood Cell Count 10.35 K/mm3 (4.00-11.30)
[2024-08-30 06:13] LABS: Magnesium, Blood 2.2 mg/dL (1.6-2.4)
[2024-08-30 06:35] LABS: Alanine Aminotransfer (ALT/SGP 46 U/L (12-78); Albumin, Blood 2.8 g/dL (3.4-5.0); Albumin/Globulin Ratio 0.6 (0.8-1.8); Alk Phos 114 U/L (50-136); Anion Gap 13 mmol/L (3-11); Aspartate Aminotrans (AST/SGOT 99 U/L (12-37); Bilirubin, Total 0.6 mg/dL (0.1-1.0); Blood Urea Nitrogen 23 mg/dL (8-24); Bun/Creatinine Ratio 25.2 (12.0-20.0); CO2, Blood 28 mmol/L (21-32); Calcium, Blood 9.2 mg/dL (8.5-10.1); Chloride, Blood 111 mmol/L (98-108); Creatinine, Blood 0.91 mg/dL (0.60-1.20); Glomerular Filtration Rate 86 (60-); Glucose, Blood 99 mg/dL (70-99); Phosphorus, Blood 3.1 mg/dL (2.5-4.9); Potassium, Blood 3.5 mmol/L (3.5-5.5); Sodium, Blood 148 mmol/L (136-145); Total Protein, Blood 7.8 g/dL (6.4-8.2); Triglycerides 165 mg/dL (30-160)
[2024-08-30 08:03] VITALS: BP 115/80
[2024-08-30] MEDS ORDERED: Divalproex Sodium 500 MG TABLET.DR PO SCH (09:00)
--- NOTE | 2024-08-30 10:36 | NUR ---
AM NOTE: PATIENT WAKES THIS AM AND IS ABLE TO TELL ME WHO HE IS AND WHERE HE IS. INTERMIT CONFUSION OF PLACE. NOT ABLE TO TELL ME DATE, WHY HE IS HERE OR ANY OTHER ORIENTING QUESTIONS. PATIENT VERY PARANOID WITH STAFF AND EVEN FAMILY. KARYNA MELARA AT BEDSIDE THIS AM AND PATIENT CONTINUES TO BE PARANOID AND AT TIMES CONFUSING HER FOR A FRIEND NAMED TANYA. PATIENT MOVING ALL EXTREMITIES WITH LIMITED RANGE OF MOTION. 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 PATIENT ABLE TO FOLLOW COMMANDS WITH SPEECH THERAPY THIS AM. UPGRADED TO PUREE DIET ALTHOUGH VERY PARANOID ABOUT EATING FOOD FROM THE HOSPITAL. PATIENT NOT LETTING STAFF CLEAN MOUTH OR REMOVE DENTURES. FAMILY ATTEMPTS TO CLEAN MOUTH AND REMOVE DENTURES WELL. TELE SHOWING AFIB WITH HR 110'S. DENIES CHEST PAIN/PRESSURE/PALPITATIONS. SBP 110'S. PPP. EDEMA TO BLE AND HANDS. IV SALINE LOCKED. IV INFILTRATION TO MIDLINE IN RIGHT UPPER ARM DURING THE NIGHT. ICE PACKS IN PLACE. ON ROOM AIR SATING 90-94%. PATIENT REFUSING TO KEEP BIOX ON FINGER OR EAR. EVEN AND UNLABORED RESPIRATIONS. OCCASIONAL DRY COUGH. DENIES SOB. TALKING AND YELLING OUT. ORAL SUCTION AT BEDSIDE. BOWEL TONES PRESENT. SEE NEW DIET ORDERS FROM SPEECH. MEDS CRUSHED IN APPLESAUCE. ATTENDS IN PLACE. INCONTINENT BOWEL MOVEMENT THIS AM. TORREZ CATH REMOVED AND PUREWICK IN PLACE. DENIES ABDOMINAL PAIN/NAUSEA. SKIN OVERALL DRY, RED AND SCATTERED WOUNDS. SEE WOUND CARE ORDERS AND PHOTOS IN CHART. EXTENSIVE WOUNDS TO BILATERAL LOWER EXTREMITIES. WOUND CARE COMPLETED. Q2 TURNING AND NEEDED. DR. PUENTE TO BEDSIDE THIS MORNING. PLAN FOR PO MEDS VS IV NOW THAT PATIENT PASSED SWALLOW EVAL. PLAN TO CHECK BLOOD SUGARS PRIOR TO MEALS. FAMILY MELARA AT BEDSIDE AND UPDATED BY THIS RN. PATIENT CONTINUES TO BE PARANOID EVEN WITH FAMILY AT BEDSIDE. BED ALARM IN PLACE.
[2024-08-30 11:19] VITALS: BP 137/64
--- NOTE | 2024-08-30 12:52 | NUR ---
AFTERNOON VITALS STABLE. PATIENT CONTINUES TO BE PARANOID. FAMILY AT BEDSIDE. PATIENT AFTERNOON BLOOD SUGAR 71. REFUSING TO EAT. NUT FORMER BY TO TALK WITH FAMILY. DR. PUENTE UPDATED BY THIS RN. PLAN TO CHECK BLOOD SUGARS AC AND PRN. PT/OT ORDERS IN PLACE. FAMILY UPDATED AT BEDSIDE. WOUND CARE COMPLETED. BED ALARM IN PLACE.
[2024-08-30] MEDS ORDERED: OLANZapine 10 MG Vial IM ONE (13:40)
--- NOTE | 2024-08-30 13:40 | NUR ---
PATIENT CONTINUES TO BE PARANOID AND YELLING OUT AT STAFF. INAPPROPRIATE COMMENTS AND AT TIMES SWINGING ARMS AT STAFF. DR. PUENTE UPDATED. DEPAKOTE PO SWTICHED BACK TO IV SINCE PATIENT IS REFUSING ORAL INTAKE AT THIS TIME. ORDERS UPDATED. ORDERS TO GIVE ZYPREXA AT THIS TIME FROM
[2024-08-30 15:03] VITALS: BP 131/109
--- NOTE | 2024-08-30 15:25 | NUR ---
PATIENT CONTINUES TO BE AGGITATED, SWINGING AND YELLING AT STAFF POST IM ZYPREXA ADMINISTRATION. DR. PUENTE CALLED AND UPDATED. NO VOID SINCE TORREZ REMOVAL. BLADDER SCAN COMPLETED SHOWING 486ML. NO NEW ORDERS FOR THIS RN TO PLACE.
[2024-08-30] MEDS ORDERED: D5W-LR 1,000 ML IV SCH (16:45)
--- NOTE | 2024-08-30 18:17 | NUR ---
SHIFT SUMMARY: DR. PUENTE UPDATED ON RECENT BLOOD SUGAR OF 68. D5 LR STARTED PER EMAR. PATIENT CALMED DOWN POST IV ATIVAN ADMINISTRATION. VITAL SIGNS REMAIN STABLE. PLACED ON 2L NASAL CANNULA WHILE SLEEPING. REMAINS AFIB WITH HR 110'S. MEDICATED X1 THIS SHIFT WITH IV METOPROLOL. TORREZ CATH REPLACED DUE TO RETENTION. FAMILY AT BEDSIDE THIS AM AND UPDATED. CONTINUED TO REFUSE TO TAKE ANYTHING ORAL THIS SHIFT. PATIENT VERY PARANOID WHILE AWAKE AND ANGRY AT STAFF.
[2024-08-30 18:32] VITALS: BP 130/71
[2024-08-30 19:56] VITALS: BP 140/72
[2024-08-30] MEDS ORDERED: OLANZapine ODT 5 MG Tab MM SCH (21:00)
[2024-08-31] VITALS (7 sets, daily range): BP systolic 115–156; BP diastolic 48–72
[2024-08-31 04:14] LABS: Base Excess Venous 7.1 mmol/L; Bicarbonate Venous 30.3 mmol/L (24.0-30.0); PCO2 Venous 43.3 mmHg (38-42); pH Blood Venous 7.46 (7.34-7.37)
[2024-08-31 04:47] LABS: BASOPHILS ABSOLUTE AUTO 0.03 K/mm3 (0.00-0.23); BASOPHILS PERCENT AUTO 0 % (0-2); EOSINOPHILS ABSOLUTE AUTO 0.25 K/mm3 (0.00-0.68); EOSINOPHILS PERCENT AUTO 3 % (0-6); Hematocrit 34.8 % (37.0-53.0); Hemoglobin 10.5 g/dL (13.5-17.5); IMMATURE GRAN ABSOLUTE AUTO 0.05 K/mm3 (0.00-0.10); IMMATURE GRAN PERCENT AUTO 1 % (0-1); LYMPHOCYTES ABSOLUTE AUTO 2.15 K/mm3 (0.84-5.20); LYMPHOCYTES PERCENT AUTO 27 % (21-46); MONOCYTES ABSOLUTE AUTO 0.99 K/mm3 (0.16-1.47); MONOCYTES PERCENT AUTO 12 % (4-13); Mean Corpuscular HGB Conc 30.2 g/dL (31.5-36.5); Mean Corpuscular Volume 86 fL (80-100); Mean Platelet Volume 9.4 fL (9.1-12.4); NEUTROPHILS ABSOLUTE AUTO 4.62 K/mm3 (1.96-9.15); NEUTROPHILS PERCENT AUTO 57 % (41-73); Platelet Count 202 K/mm3 (150-400); RDW Coefficient Variation 16.2 % (11.7-14.2); RDW Standard Deviation 50.6 fL (35.1-46.3); Red Blood Cell Count 4.04 M/mm3 (4.30-5.90); White Blood Cell Count 8.09 K/mm3 (4.00-11.30)
[2024-08-31 04:56] LABS: Albumin, Blood 2.2 g/dL (3.4-5.0); Albumin/Globulin Ratio 0.6 (0.8-1.8); Bilirubin, Total 0.5 mg/dL (0.1-1.0); Bun/Creatinine Ratio 29.8 (12.0-20.0); Calcium, Blood 8.7 mg/dL (8.5-10.1); Creatinine, Blood 0.77 mg/dL (0.60-1.20); Globulin, Blood 3.8 g/dL (2.2-4.0); Magnesium, Blood 2.2 mg/dL (1.6-2.4); Phosphorus, Blood 3.5 mg/dL (2.5-4.9); Potassium, Blood 3.4 mmol/L (3.5-5.5)
--- NOTE | 2024-08-31 05:10 | NUR ---
PT HAS BECOME INCREASINGLY LETHARGIC AND HAS BECOME LESS RESPONSIVE OVERNIGHT. VERY MINIMALLY RESPONSIVE TO PAIN. DOES NOT ANSWER QUESTIONS, FOLLOW COMMANDS, ETC. SPOKE WITH RESIDENT DR. LÓPEZ WHO ORDERED VBG. WHEN VBG RESULTED, SPOKE AGAIN WITH DR. LÓPEZ WHO ORDERED HEAT CT FOR FURTHER ANALYSIS. HEAD CT COMPLETED, AWAITING READING TO RESULT. CONTINUING TO MONITOR.
[2024-08-31] MEDS ORDERED: Dextrose 5% 1,000 ML IV SCH (05:35)
--- NOTE | 2024-08-31 05:45 | NUR ---
SHIFT SUMMARY. PT MENTATION HAS FLUCTUATED A LOT OVER COURSE OF SHIFT. SEE PREVIOUS NOTE FOR DETAILS. PT MINIMALLY RESPONSIVE THIS MORNING, INCREASINGLY LETHARGIC. SPOKE WITH DR. PADRON ABOUT THESE CONCERNS, INITIALLY, DR. PADRON WANTED PATIENT MOVED TO ICU FOR CLOSER MONITORING. UPON ASSESSMENT OF THE PATIENT, ORDERED THAT PT WAS APPROPRIATE TO STAY IN PCU BUT TO RUN IT BY THE DAY SHIFT DOCTORS WHEN THEY ARRIVE SO THEY ARE IN THE LOOP. WILL ATTEMPT TO DO SO BEFORE SHIFT CHANGE AND WILL NOTIFY IN REPORT IF UNABLE. VITALS HAVE REMAINED STABLE. O2 DEMANDS HAVE REMAINED STABLE AT 5 L O2 VIA NC DESPITE FLUCTUATIONS IN BREATHING PATTERNS. PT DOES HAVE GAG REFLEX DESPITE BEING MINIMALLY RESPONSIVE. RATE HAS FLUCTUATED BETWEEN 70s-120s WITH RHYTHM REMAINING IN AFIB. BED LOCKED IN LOWEST POSITION. CALL LIGHT LEFT WITHIN REACH. CONTINUING TO MONITOR.
--- NOTE | 2024-08-31 06:25 | NUR ---
SPOKE WITH DR. KIDD. UPDATED ON AFOREMENTIONED MENTATION CHANGES AND OTHER ASPECTS OF PT STATUS. DR. KIDD INFORMED HE WILL ASSESS PATIENT WHEN HE IS ABLE BUT TO CONTINUE TO MONITOR OTHERWISE.
[2024-08-31 06:46] LABS: Bun/Creatinine Ratio 29.6 (12.0-20.0); Calcium, Blood 8.7 mg/dL (8.5-10.1); Creatinine, Blood 0.74 mg/dL (0.60-1.20); Potassium, Blood 3.6 mmol/L (3.5-5.5)
[2024-08-31] MEDS ORDERED: Multivitamins 1 Tab PO SCH (09:00)
[2024-08-31] MEDS ORDERED: Thiamine HCl 100 MG Tab PO SCH (09:00)
[2024-08-31 12:10] LABS: Bun/Creatinine Ratio 28.5 (12.0-20.0); Creatinine, Blood 0.77 mg/dL (0.60-1.20); Potassium, Blood 3.6 mmol/L (3.5-5.5)
[2024-08-31] MEDS ORDERED: Enoxaparin 40 MG/0.4 ML SYR SC SCH (15:41)
--- NOTE | 2024-08-31 17:47 | NUR ---
END OF SHIFT PT MINIMALLY RESPONSIVE THIS AM, THEN RESPONDING TO PAINFUL STIMULI, OPENING EYES MINIMALLY, ABLE TO WEAKLY SQUEEZE HANDS ON COMMAND. PT SPEECH MUMBLED. PT ORIENTED TO SELF. PT ALERT ONLY BRIEFLY THEN RETURNS TO SLEEP. PT SLEEPING MAJORITY OF SHIFT. WAKES FOR PT CARE SUCH Q2H REPOSITIONING. PT EXTREMITIES STIFF W/ STAFF ATTEMPT TO BATHE/REPOSITION. PT VSS. SPO2 > 92% ON 8L OXYMASK, TITRATED TO 6L. MONITOR SHOWING AFIB, HR 80s-120s. NO PO INTAKE THIS SHIFT D/T PT INABILITY TO REMAIN AWAKE. D5 GTT INFUSING PER ORDERS. PT W/ SKIN BREAK DOWN TO BUTTOCK, DRESSING IN PLACE. BLE WOUNDS W/ DRESSINGS IN PLACE. TORREZ CATH PATENT & DRAINING DARK YELLOW URINE. CALL FROM PT KARYNA AHN STATING SHE LIVES W/ PT & IS ABLE TO PROVIDE CARE FOR PT WHEN PT ABLE TO RETURN HOME. PT FAMILY MEMBER STATES "OH NO, WE DON'T WANT HIM TO GO TO A GROUP HOME. WE WANT HIM TO BE ABLE TO COME HOME." PT KARYNA REPORTS ABILITY TO PROVIDE CARE FOR PT NEEDED.
[2024-08-31 18:09] LABS: Bun/Creatinine Ratio 25.2 (12.0-20.0); Calcium, Blood 8.9 mg/dL (8.5-10.1); Creatinine, Blood 0.87 mg/dL (0.60-1.20); Potassium, Blood 3.5 mmol/L (3.5-5.5)
[2024-08-31] MEDS ORDERED: Pregabalin 75 MG Cap PO SCH (21:00)
[2024-08-31] MEDS ORDERED: Arginine/Glutamine/Calcium Hmb 1 Packet PO SCH (21:00)
[2024-08-31] MEDS ORDERED: ALPRAZolam 0.5 MG Tab PO SCH (21:20)
[2024-09-01] VITALS (7 sets, daily range): BP systolic 108–160; BP diastolic 52–95
--- NOTE | 2024-09-01 04:52 | NUR ---
SHIFT SUMMARY NEURO: PT WAS ALERT AND ORIENTED TO SELF, AND SOMETIMES PLACE AND SITUATION. PT OBEYED COMMANDS AND VERBALIZES NEEDS. SPEECH IS SOFT AND MUMBLED. PERRLA. EQUAL STRENGTH IN ALL EXTREMETIES. CARDIOVASCULAR: HR 110'S TO 130'S. UNSUSTAINED WHEN IN 130'S. BP 140'S-150'S. PT DENIES CHEST PAIN/PRESSURE RESPIRATORY: PT ON VENTI MASK AT 11L AT BEGINNING OF SHIFT, TITRATED DOWN TO 4L AND SATTING ABOVE 90%. MUSCULOSKELETAL: PT ON BEDREST AT THIS TIME. 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 PT REPORTS FEELING STIFF IN ALL JOINTS. GI/: NO BM THIS SHIFT, PT HAS TORREZ IN PLACE, DRAINING TO GRAVITY WITH YELLOW URINE. BRIEF IN PLACE. PT TOLERATED PUDDING AND DRINKING WATER FROM STRAW. PILLS WERE TAKEN WHOLE IN APPLESAUCE WITHOUT COMPLICATION. INTEGUMENTARY: PT HAS MANY VENOUS STATIS ULCERS BLE, VERY DRY SKIN.
[2024-09-01 05:23] LABS: Bun/Creatinine Ratio 33.6 (12.0-20.0); Calcium, Blood 8.8 mg/dL (8.5-10.1); Creatinine, Blood 0.68 mg/dL (0.60-1.20); Magnesium, Blood 2.1 mg/dL (1.6-2.4); Phosphorus, Blood 2.8 mg/dL (2.5-4.9); Potassium, Blood 3.8 mmol/L (3.5-5.5)
[2024-09-01] MEDS ORDERED: Metoprolol Succinate 50 MG TABCR PO SCH (08:53)
[2024-09-01 09:35] LABS: BASOPHILS ABSOLUTE AUTO 0.06 K/mm3 (0.00-0.23); BASOPHILS PERCENT AUTO 1 % (0-2); EOSINOPHILS ABSOLUTE AUTO 0.52 K/mm3 (0.00-0.68); EOSINOPHILS PERCENT AUTO 5 % (0-6); Hematocrit 34.5 % (37.0-53.0); Hemoglobin 10.5 g/dL (13.5-17.5); IMMATURE GRAN ABSOLUTE AUTO 0.06 K/mm3 (0.00-0.10); IMMATURE GRAN PERCENT AUTO 1 % (0-1); LYMPHOCYTES ABSOLUTE AUTO 2.02 K/mm3 (0.84-5.20); LYMPHOCYTES PERCENT AUTO 19 % (21-46); MONOCYTES ABSOLUTE AUTO 0.83 K/mm3 (0.16-1.47); MONOCYTES PERCENT AUTO 8 % (4-13); Mean Corpuscular HGB 26.1 pg (26.0-34.0); Mean Corpuscular HGB Conc 30.4 g/dL (31.5-36.5); Mean Corpuscular Volume 86 fL (80-100); NEUTROPHILS ABSOLUTE AUTO 6.99 K/mm3 (1.96-9.15); NEUTROPHILS PERCENT AUTO 67 % (41-73); RDW Coefficient Variation 15.8 % (11.7-14.2); RDW Standard Deviation 49.5 fL (35.1-46.3); Red Blood Cell Count 4.02 M/mm3 (4.30-5.90); White Blood Cell Count 10.48 K/mm3 (4.00-11.30)
[2024-09-01] MEDS ORDERED: Dextrose 5% 500 ML IV ONE (14:00)
[2024-09-01 17:34] LABS: Bun/Creatinine Ratio 37.1 (12.0-20.0); Calcium, Blood 8.7 mg/dL (8.5-10.1); Creatinine, Blood 0.7 mg/dL (0.60-1.20); Potassium, Blood 3.7 mmol/L (3.5-5.5)
--- NOTE | 2024-09-01 17:59 | NUR ---
MET WITH DANE, HIS NEICE KELTON (POA), FRIEND TANYA (POA), KARYNA LINN, AND SON PATY. EDUCATED ABOUT HOSPICE, AFTER THROUGH DISCUSSION PATIENT WOULD LIKE TO GO HOME WITH HOSPICE. WE DISCUSSED CODE STATUS. POLST UPDATED TO REFLECT DNR AND COMFORT MEASURES. SIGNED, SENT TO REGISTRY, AND MEDICAL RECORDS. UPDATED CODE STATUS ORDERS.
--- NOTE | 2024-09-01 18:36 | NUR ---
END OF SHIFT PT A&O TO SELF, FAMILY, PLACE & SITUATION. PT SPEECH MORE CLEAR TODAY. VSS. SPO2 > 92% ON 4-6L OXYMASK OR NC THIS SHIFT. MONITOR SHOWING AFIB, HR 70s-110s. TORREZ CATH PATENT & DRAINING YELLOW URINE. PT UP TO RECLINER CHAIR W/ CEILING LIFT. PT BUTTOCKS WOUND CLEANSED & REDRESSED. BLE WOUNDS CLEANSED & REDRESSED PER WOUNDCARE ORDER.
[2024-09-02 03:36] VITALS: BP 118/67
--- NOTE | 2024-09-02 05:19 | NUR ---
SHIFT SUMMARY PT A/O TO SELF AND PLACE, BUT NOT SITUATION OR MONTH. VERBALIZES NEEDS, BUT DOES NOT USE CALL LIGHT. OBEYS COMMANDS. PT DENIES PAIN. ON 5L NC AT BEGINNING OF SHIFT, BUT TITRATED TO 10L VENTI MASK DUE TO INABILITY TO MAINTAIN O2 SATS ABOVE 90% WHILE SLEEPING. PT DENIES CHEST PAIN/PRESSURE, BP STABLE, HR 70'S-90'S. MAX ASSIST LIFT TO CHAIR. 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 Q2 REPOSITIONING. BANDAGES CLEAN, DRY, AND INTACT ON BLE. OPTIFOAM BANDAGE IN IN PLACE ON COCCYX. PT STILL ON PUREED DIET AND REQUIRES FEEDING ASSISTANCE. NO BM THIS SHIFT. TORREZ IN PLACE, YELLOW URINE DRAINING TO GRAVITY. PLAN IS TO POTENTIALLY DISCHARGE PT HOME ON HOSPICE.
[2024-09-02 07:31] VITALS: BP 131/63
--- NOTE | 2024-09-02 07:37 | NUR ---
ASSUMPTION NOTE: THIS RN TO ASSUME CARE OF PATIENT. PATIENT IS SITTING UP IN BED WATCHING TV. VITAL SIGNS TAKEN AND PATIENT STABLE. PATIENT ASKING FOR SOME SOUP TODAY AND NOTIFIED WE WILL LOOK AT WHAT WE HAVE IN PANTRY AND REMINDED HIM HE IS A PURRED DIET CURRENTLY. PATIENT HAS CALL LIGHT WITHIN REACH AND BED IN LOWEST POSITION.
--- NOTE | 2024-09-02 09:36 | NUR ---
MD TO BEDSIDE: MD CAME TO BEDSIDE AND STATED PLAN WILL BE TO DISCHARGE ON HOSPICE AND NEEDED THE INTAKE TO BE RESENT AND THAT WAS DONE. PATIENT CURRENTLY WORKING WITH PHYISCAL THERAPY.
--- NOTE | 2024-09-02 10:48 | NUR ---
call placed to poa: this rn called friend Toma who is patients POA to update regarding the hospice situation. she was updated that the intake won't happen until either tuesday or tuesday so until then discharge wouldn't be likely for a few days.
[2024-09-02 12:30] VITALS: BP 118/57
[2024-09-02 15:38] VITALS: BP 123/60
--- NOTE | 2024-09-02 17:11 | NUR ---
SHIFT SUMMARY: PATIENT IS ALERT AND ORIENTED X4 AND ACTIVE IN HIS CARE, IS ABLE TO MAKE NEEDS KNOWN AND USES CALL LIGHT APPROIRATELY. ON TELE SHOWING SINUS WITH RATE IN 90'S. SATTING >92% ON ROOM AIR, DOES DESAT OCCASIONALLY WHEN SLEEPING, EASILLY AROUSABLE AND READJUSTS & QUICKLY RECOVERS. RT FOLLOWING AND GETTING BREATHING TREATMENTS. WAS GIVEN MEDICATIONS FOR WITHDRAWS & CIWA 5-9 THROUGHOUT SHIFT. WILL BE NPO TONIGHT AT MIDNIGHT FOR A POSSIBLE INTERVENTION IN THE AM. PATIENT AWARE OF THIS. PATIENT SHOWERED TODAY, DID FINE USING WALKER DUE TO THE SWELLING IN THE LEG. WILL CONTIUE TO MONITOR UNITL SHIFT CHANGE AND BLADDER TIER RN TAKES OVER.
--- NOTE | 2024-09-02 17:28 | NUR ---
SHIFT SUMMARY: PATIENT IS ALERT AND ORIETNED X3, NOT ABLE TO GIVE THE SITUATION BRINGING HIM TO THE HOSPITAL. SATTING >92% ON VENTI MASK AT 6 LITERS. ON TELE SHOWING AFIB WITH RATE 110-120. PATIENT FAMILY AT BEDSIDE THROUGHOUT SHIFT. UPDATED ON THE PLAN WILL BE TO DISCHARGE HOME WITH HOSPICE AND THEY WILL DO THE INTAKE SOMETIME WITHIN THE NEXT FEW DAYS. PATIENT WOUND CARE DONE THIS SHIFT AND GIVEN A BED BATH. PATIENT WAS ABLE TO GET SOME REST TODAY AND WAS MORE ALERT AND PLESEANT THROUGHOUT THE SHIFT. THIS RN WILL CONTINUE TO MONITOR PATIENT UNITL SHIFT CHANGE AND NIGHT RN ASSUMES CARE.
[2024-09-02 20:08] VITALS: BP 147/66
[2024-09-02 23:24] VITALS: BP 102/61
[2024-09-03 04:23] VITALS: BP 114/65
[2024-09-03 04:29] VITALS: BP 114/65
--- NOTE | 2024-09-03 05:33 | NUR ---
SHIFT SUMMARY PT ORIENTED TO SELF, PERSON, PLACE. HOWEVER STILL HAS DIFFICULTIES REMEMBERING WHY HE IS HERE WITH US. PT WAS ABLE TO REST COMOFORTABLY WITH NO ACUTE CHANGES. VSS ON 6-10L VENTI MASK WHILE SLEEPING SATING >92%. PT REMAINS ON TELE IN AFIB WITH HR RANGING 80-120s. PT REPOSITIONED IN BED THROUGHOUT NIGHT. PT ABLE TO MAKE NEEDS KNOWN. FOLLOWS COMMANDS APPROPRIATELY. VERY PLEASANT THROUGHOUT NIGHT. PT REQUESTED LOTION ON ARMS AND LEGS, THIS NURSE APPLIED. PT ABLE TO SWALLOW MEDS CRUSHED IN PUDDING WELL AND ABLE TO HOLD CUPS HIMSELF TO DRINK FLUIDS THROUGHOUT NIGHT. TORREZ REMAINS IN PLACE, PATENT, DRAINING WITH GRAVITY. NO FURTHER QUESTIONS OR CONCERNS AT THIS TIME. CALL GUTIERRES WITHIN REACH. WILL REPORT TO ONCOMING NURSE.
[2024-09-03 07:50] VITALS: BP 141/99
--- NOTE | 2024-09-03 08:00 | NUR ---
Kerr of care: Very pleasant gentleman, oriented x3, follows commands. In Afib up to 120s, BP stable, oxygen sat in low 90s on 8L NC. Pureed diet with good intake. Esparza cath patent & secure to thigh draining clear yellow urine. PIV x1 in place. Plan for d/c home with hospice tomorrow 09/04. Will continue to monitor.
[2024-09-03] MEDS ORDERED: OxyCODONE HCL 5 MG TAB PO PRN (11:15)
[2024-09-03 11:29] VITALS: BP 147/87
--- NOTE | 2024-09-03 12:08 | NUR ---
Pt discharging with hospice, and requests to liberalize his diet. Pt is being optimized until discharge, so no other medication changes to be made at this time. PT/OT/ST discontinued for pt's comfort.
--- NOTE | 2024-09-03 17:07 | NUR ---
Shift summary: Orders for comfort care. No complaints of pain at this time. Did receive one dose of prn roxicodone for pain of 7/10 in bilat LE earlier today that has resolved. Good appetite. Esparza cath & PIV x1 in place. No complaints at this time, resting comfortably in bed, will continue to monitor. Awaiting med bed.
[2024-09-03 20:17] VITALS: BP 118/68
--- NOTE | 2024-09-04 04:55 | NUR ---
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 PT ON 7L O2 VIA NC, NO SIGNS OF RESPIRATORY DISTRESS. CONTINUOUS TELE MONITORING PER PT COMFORT, EDUCATED PT THAT IF HE DOES NOT WANT THE CORDS ON ANYMORE WE CAN TAKE THEM OFF. BOWEL TONES PRESENT TO ALL 4Q, ABD SOFT AND NONTENDER. TORREZ SECURE/PATENT/DRAINING TO GRAVITY, URINE YELLOW IN COLOR. BED LOWEST POSITION, CALL LIGHT IN REACH, AWAITING TO GIVE REPORT TO ONCOMING RN.
[2024-09-04] MEDS ORDERED: OXAYDO5 M1 PO (10:02)
--- NOTE | 2024-09-04 10:11 | NUR ---
DISCHARGE NOTE: PATIENT LEFT VIA GURNEY BEING TRANSPORTED BY AMBULANCE. PATIENT IS ALERT AND AWARE OF GOING HOME AND LEAVING THE HOSPITAL. HAS ALL PERSONAL BELONGINGS WITH HIM AND KNOWS THE HOSPICE NURSE WILL BE COMING TO HIS HOME AT 11 TO DO THE INTAKE. PATIENT POWER OF IP PARALEGAL #1 NOTIFIED ABOUT PATIENT LEAVING.
== END 2024-09-04 10:04 | disposition hospice, home (50) | DRG 82 ==
LOC: ER 17:35 → ERHOLD 23:42 → PCU 23:42
PROVIDERS: Emergency Medicine; Family Medicine; Internal Medicine; Student in an Organized Health Care Education/Training Program; ADMIT Student in an Organized Health Care Education/Training Program
PROC: 0T9B70Z Drainage of Bladder with Drainage Device, Via Natural or Artificial Opening (ICD-10-PCS; principal; 2024-08-24)
DX: S06.5XAA Traumatic subdural hemorrhage with loss of consciousness status unknown, initial encounter (principal); G82.50 Quadriplegia, unspecified; G93.41 Metabolic encephalopathy; I96 Gangrene, not elsewhere classified; G95.89 Other specified diseases of spinal cord; L03.116 Cellulitis of left lower limb; L97.329 Non-pressure chronic ulcer of left ankle with unspecified severity; T68.XXXA Hypothermia, initial encounter; I10 Essential (primary) hypertension; E78.5 Hyperlipidemia, unspecified; R29.6 Repeated falls; W18.30XA Fall on same level, unspecified, initial encounter; F15.90 Other stimulant use, unspecified, uncomplicated; E03.9 Hypothyroidism, unspecified; R40.2412 Glasgow coma scale score 13-15, at arrival to emergency department; D64.9 Anemia, unspecified; I87.2 Venous insufficiency (chronic) (peripheral); I25.10 Atherosclerotic heart disease of native coronary artery without angina pectoris; I35.0 Nonrheumatic aortic (valve) stenosis; I05.0 Rheumatic mitral stenosis; I48.0 Paroxysmal atrial fibrillation; Z66 Do not resuscitate; Z51.5 Encounter for palliative care; F41.9 Anxiety disorder, unspecified; G62.9 Polyneuropathy, unspecified; Z98.1 Arthrodesis status; I25.2 Old myocardial infarction; Z79.890 Hormone replacement therapy; Z99.3 Dependence on wheelchair; Z95.5 Presence of coronary angioplasty implant and graft; Z98.890 Other specified postprocedural states; Y90.0 Blood alcohol level of less than 20 mg/100 ml
CPT/HCPCS: 0241U; 36415; 51702; 70450; 71045; 74177; 80048; 80053; 80202; 80320; 81003; 82140; 82248; 82533; 82550; 82803; 82947; 83605; 83735; 84100; 84145; 84439; 84443; 84478; 85025; 85610; 85730; 87040; 92610; 93005; 93010; 94762; 96365; 96366; 97162; 97530; 99285-25; A9270; C1751; J0692; J1171; J1650; J1940; J2060; J3370; J3411; J3480; J7040; J7042; J7050; J7060; J7070; J7120; J7121; Q9967

== ENCOUNTER 2024-09-16 10:07 | Inpatient (IN) | payer OTHER ==
[~2024-09-16] VITALS: Ht 180.3 cm; Wt 100.1 kg
[~2024-09-16 10:07] MED LIST changes: +ATOR20 PO; +FURO20 PO; -Lactated Ringer's 1,000 ML IV SCH; +OXAYDO5 M1 PO; +POTA10T PO
[2024-09-16 10:38] LABS: Source, Urine Foley catheter
[2024-09-16 10:41] LABS: BASOPHILS ABSOLUTE AUTO 0.02 K/mm3 (0.00-0.23); BASOPHILS PERCENT AUTO 0 % (0-2); EOSINOPHILS PERCENT AUTO 0 % (0-6); Hematocrit 25.7 % (37.0-53.0); Hemoglobin 8.1 g/dL (13.5-17.5); IMMATURE GRAN ABSOLUTE AUTO 0.17 K/mm3 (0.00-0.10); IMMATURE GRAN PERCENT AUTO 1 % (0-1); LYMPHOCYTES ABSOLUTE AUTO 0.76 K/mm3 (0.84-5.20); LYMPHOCYTES PERCENT AUTO 4 % (21-46); MONOCYTES ABSOLUTE AUTO 0.22 K/mm3 (0.16-1.47); MONOCYTES PERCENT AUTO 1 % (4-13); Mean Corpuscular HGB 26.2 pg (26.0-34.0); Mean Corpuscular HGB Conc 31.5 g/dL (31.5-36.5); Mean Corpuscular Volume 83 fL (80-100); Mean Platelet Volume 8.4 fL (9.1-12.4); NEUTROPHILS ABSOLUTE AUTO 16.18 K/mm3 (1.96-9.15); NEUTROPHILS PERCENT AUTO 93 % (41-73); NRBC ABSOLUTE 0.02 K/mm3 (0.00-0.02); NRBC Auto 0.1 /100 WBC (0.0-0.2); Platelet Count 369 K/mm3 (150-400); RDW Coefficient Variation 15.9 % (11.7-14.2); RDW Standard Deviation 48.2 fL (35.1-46.3); Red Blood Cell Count 3.09 M/mm3 (4.30-5.90); White Blood Cell Count 17.35 K/mm3 (4.00-11.30)
[2024-09-16 10:49] LABS: Appearance, Urine Clear (Clear); Bilirubin, Urine Neg (Neg); Blood, Urine Neg (Neg); Color, Urine Yellow (P-Yellow); Glucose Qualitative, Urine Neg (Neg); Ketones, Urine Neg (Neg); Leukocyte Esterase, Urine Neg (Neg); Nitrite, Urine Neg (Neg); Protein, Urine 1+ (Neg); Urobilinogen, Urine 1+ (Normal)
[2024-09-16 10:54] LABS: Alanine Aminotransfer (ALT/SGP 27 U/L (12-78); Albumin, Blood 2.4 g/dL (3.4-5.0); Albumin/Globulin Ratio 0.6 (0.8-1.8); Alk Phos 181 U/L (50-136); Anion Gap 12 mmol/L (3-11); Aspartate Aminotrans (AST/SGOT 33 U/L (12-37); Bilirubin, Total 0.5 mg/dL (0.1-1.0); Blood Urea Nitrogen 21 mg/dL (8-24); Bun/Creatinine Ratio 22.3 (12.0-20.0); CO2, Blood 23 mmol/L (21-32); Calcium, Blood 8.6 mg/dL (8.5-10.1); Chloride, Blood 106 mmol/L (98-108); Creatinine, Blood 0.94 mg/dL (0.60-1.20); Ethanol (Alcohol), Blood, Med <3 mg/dL; Globulin, Blood 3.9 g/dL (2.2-4.0); Glomerular Filtration Rate 82 (60-); Glucose, Blood 97 mg/dL (70-99); Potassium, Blood 4.9 mmol/L (3.5-5.5); Sodium, Blood 136 mmol/L (136-145); Total Protein, Blood 6.3 g/dL (6.4-8.2)
[2024-09-16 10:59] LABS: U Amphetamine Screen DETECTED; U Methamphetamine Screen DETECTED
[2024-09-16 11:00] LABS: U Barbituate Screen Not Detected; U Benzodiazapine Screen Not Detected; U Buprenorphine Screen Not Detected; U Cannabinoids Screen Not Detected; U Cocaine Screen Not Detected; U Methadone Screen Not Detected; U Opiates Screen Not Detected; U Oxycodone Screen DETECTED; U Phencyclidine Screen Not Detected
[2024-09-16] MEDS ORDERED: Acetaminophen 325 MG TABLET PO ONE (11:00)
[2024-09-16] MEDS ORDERED: Lactated Ringer's 1,000 ML IV ONE (11:00)
[2024-09-16] MEDS ORDERED: FentaNYL Citrate 50 MCG/ML 2 ML Injection IV ONE (11:35)
[2024-09-16] MEDS ORDERED: Ondansetron HCl 2 MG / ML 2ML Vial IV ONE (11:35)
[2024-09-16 12:09] LABS: Influenza A, PCR NEGATIVE (NEGATIVE); Influenza B, PCR NEGATIVE (NEGATIVE); Resp Syncytial Virus, PCR NEGATIVE (NEGATIVE); SARS-Cov-2 (COVID-19) PCR, MMC NEGATIVE (NEGATIVE)
[2024-09-16] MEDS ORDERED: Azithromycin 500 MG in NS 250 ML IV ONE (13:10)
[2024-09-16] MEDS ORDERED: OxyCODONE HCL 5 MG TAB PO ONE (13:55)
[2024-09-16] MEDS ORDERED: Piperacillin/Tazobactam Sod 4.5 GM in NS 100 ML IV SCH (15:25)
[2024-09-16] MEDS ORDERED: Vancomycin HCL 2,000 MG in NS 500 ML IV ONE (15:30)
[2024-09-16] MEDS ORDERED: NS 250 ML IV PRN (16:35)
[2024-09-16] MEDS ORDERED: FLU VACC TS2024-25(6MOS UP)/PF 45 MCG/0.5 ML SYRINGE IM ONE (17:00)
[2024-09-16 17:07] VITALS: BP 124/67
--- NOTE | 2024-09-16 17:34 | NUR ---
ADMISSION NOTE MR MILAN WAS ADMITTED TO MEDICAL UNIT FROM ER AT 1600HRS. HE OPENS HIS EYES, ABLE TO WEAKLY SQUEEZE MY HAND ON REQUEST, MUMBLES SOUNDS, OCCASIONAL DECIPHERABLE WORDS ("OKAY"), UNABLE TO TELL ME HIS NAME OR ANSWER ANY QUESTIONS. WOUNDS TO HIS LEGS/FEET/ANKLES PHOTOGRAPHED AND REDRESSED. RED PRESSURE AREA LEFT HIP DRESSED WITH MEPILEX. LEG CONTRACTURES. ON 6L NC, SPOT CHECK ON ARRIVAL MID 90S. PIV X2, IV ABX INFUSING. FAMILY CALLED FOR ASSISTANCE TO FILL OUT ADMISSION INFORMATION/DO MED REC ETC. KELTON RETURNED MY CALL BUT SAID THAT SHE IS UNAVAILABLE TO HELP TODAY AND WILL BE ABLE TO HELP TOMORROW. TORREZ CATHETER IN PLACE FROM ER. BED LOW, CALL LIGHT IN REACH. BED ALARM ON.
[2024-09-16] MEDS ORDERED: FentaNYL Citrate 50 MCG/ML 2 ML Injection IV PRN (17:45)
[2024-09-16 19:14] VITALS: BP 96/62
[2024-09-16 23:47] VITALS: BP 113/63
[2024-09-17 03:47] VITALS: BP 102/63
--- NOTE | 2024-09-17 04:08 | NUR ---
EDUCATION SALES CONSULTANT SUMMARY: PT ADMITTED FOR AMS. PREVIOUSLY ON HOSPICE SERVICES. DNR. PT AROUSES TO VERBAL STIMULI. VERBAL WITH YES/ NO ANSWERS. UNABLE TO TELL THIS NURSE HIS NAME OR . FOLLOWS SOME COMMANDS. NO S/S OF PAIN NOTED. NO ADVERSE SIDE EFFECTS TO IV ABX. TOTAL ASSIST WITH BED MOBILITY AND IS ON BEDS REST. TURNING SCHEDULE Q2HRS IN PLACE TOLERATED. PT FAVORS LYING ON L SIDE. NO ACUTE CHANGES T/O SHIFT. BED IN LOWEST POSITION. CARES CONTINUE ORDERED.
[2024-09-17 05:52] LABS: BASOPHILS ABSOLUTE AUTO 0.06 K/mm3 (0.00-0.23); BASOPHILS PERCENT AUTO 0 % (0-2); EOSINOPHILS ABSOLUTE AUTO 0.03 K/mm3 (0.00-0.68); EOSINOPHILS PERCENT AUTO 0 % (0-6); Hematocrit 25.3 % (37.0-53.0); Hemoglobin 7.8 g/dL (13.5-17.5); IMMATURE GRAN ABSOLUTE AUTO 0.08 K/mm3 (0.00-0.10); IMMATURE GRAN PERCENT AUTO 1 % (0-1); LYMPHOCYTES ABSOLUTE AUTO 1.26 K/mm3 (0.84-5.20); LYMPHOCYTES PERCENT AUTO 9 % (21-46); MONOCYTES ABSOLUTE AUTO 0.29 K/mm3 (0.16-1.47); MONOCYTES PERCENT AUTO 2 % (4-13); Mean Corpuscular HGB 26.1 pg (26.0-34.0); Mean Corpuscular HGB Conc 30.8 g/dL (31.5-36.5); Mean Corpuscular Volume 85 fL (80-100); Mean Platelet Volume 8.7 fL (9.1-12.4); NEUTROPHILS ABSOLUTE AUTO 11.66 K/mm3 (1.96-9.15); NEUTROPHILS PERCENT AUTO 87 % (41-73); Platelet Count 304 K/mm3 (150-400); RDW Coefficient Variation 16.4 % (11.7-14.2); RDW Standard Deviation 50.6 fL (35.1-46.3); Red Blood Cell Count 2.99 M/mm3 (4.30-5.90); White Blood Cell Count 13.38 K/mm3 (4.00-11.30)
[2024-09-17] MEDS ORDERED: Levothyroxine Sodium 0.05 MG Tab PO SCH (06:00)
[2024-09-17 06:16] LABS: Albumin, Blood 2.2 g/dL (3.4-5.0); Albumin/Globulin Ratio 0.6 (0.8-1.8); Bilirubin, Total 0.7 mg/dL (0.1-1.0); Bun/Creatinine Ratio 20.4 (12.0-20.0); Creatinine, Blood 1.13 mg/dL (0.60-1.20); Globulin, Blood 3.7 g/dL (2.2-4.0); Potassium, Blood 4.5 mmol/L (3.5-5.5); Total Protein, Blood 5.9 g/dL (6.4-8.2)
[2024-09-17 07:27] VITALS: BP 218/192
[2024-09-17 07:50] VITALS: BP 90/58
[2024-09-17 07:57] VITALS: BP 100/60
--- NOTE | 2024-09-17 07:57 | NUR ---
RN UPDATED PROVIDER RE: AUTOMATIC BP OF 215/117 AND 218/192 - MANUAL BP 90/58 (R ARM) AND 100/60 (L ARM). PT DENIES HEADACHE, CHEST PAIN/PRESSURE, SOB. LLE IS RED, WARM TO THE TOUCH, AND WHEEPING. ORAL TEMP 99.9. NO NEW ORDERS AT THIS TIME.
[2024-09-17] MEDS ORDERED: Metoprolol Succinate 50 MG TABCR PO SCH (09:00)
[2024-09-17] MEDS ORDERED: Atorvastatin 40 MG Tab PO SCH (09:00)
[2024-09-17] MEDS ORDERED: Clopidogrel Bisulfate 75 MG Tab PO SCH (09:00)
--- NOTE | 2024-09-17 12:28 | NUR ---
Initial palliative care consult: Received a call from staff about clarification of plan of care as pt is a current [facility] patient with the [facility] office. Spoke with Susanne, the [facility] liason, who states that pt is followed by the [facility] office ph # [phone], fax # [phone]. Reviewed chart and spoke with bedside nursing. Plan of care will be that pt will be placed on comfort care here in the hospital while continuing antibiotics for his cellulitis and pneumonia. End goal is to be able to discharge back on to hospice services after his infection is treated. Called [facility] office and spoke with Lidya, the intake nurse. Lidya is familiar with [facility] and reports that she spoke with pt's niece, Krissy, this morning and is aware of his admission to [facility]. Notified Lidya of pt's tox screen results from 09/16/24. Lidya states that their office is aware of the tox screen results and are monitoring the situation. Lurdes, bedside nurse, reports pt will likely be here a couple more days.
[2024-09-17] MEDS ORDERED: LORazepam 1 MG Tab PO PRN (14:05)
[2024-09-17] MEDS ORDERED: Acetaminophen 650 MG Supp PR PRN (14:10)
[2024-09-17] MEDS ORDERED: Atropine Sulfate 1% Opth Soln 2ML BTL SL PRN (14:10)
[2024-09-17] MEDS ORDERED: Scopolamine Hydrobromide Patch TOP PRN (14:10)
[2024-09-17] MEDS ORDERED: Morphine Sulfate 20 MG/1ML 1 ML Oral Syringe SL PRN (14:10)
[2024-09-17] MEDS ORDERED: Vancomycin HCL 1,250 MG in NS 250 ML IV SCH (16:00)
--- NOTE | 2024-09-17 19:18 | NUR ---
SHIFT SUMMARY PT NOW ON COMFORT CARE DUE. 10MG ROXONAL INEFFECTIVE IN MANAGING PAIN IN LLE - PT REMAINED RESTLESS AND REPORTS 8/10 PAIN. RN ADMINISTERED 20 MG ROXONAL WITH 1 MG ATIVAN, REPOSITIONED PT TO R SIDE AND PT REPORTS GOOD RELIEF. PT DID EXPERIENCE A BRIEF MOMENT OF CONFUSION AFTER ADMINISTRATION REPORTING PT SPOUSE CALLED HIM AND SAID SHE NEEDED AN AMBULANCE. THIS RN ATTEMPTED TO CALL PT SPOUSE MULTIPLE TIMES, NO ANSWER. BOOM STORAGE KERON ABLE TO GET A HOLD OF PT S/O TANYA WHO STATES SHE IS SAFE AT HOME AND WAS SLEEPING, NEVER CALLED PT. PT EASILY REORIENTED. PT TOLERATING FOOD WELL, NO DIFFICULTY SWALLOWING NOTED. DOES NOT USE CALL LIGHT, INSTEAD HOLLERS OUT BUT DOES NOT ATTEMPT TO GET UP INDEPENDENTLY. PT BED IS IN LOWEST POSITION WITH CALL LIGHT WITHIN REACH. LLE REMAINS SWOLLEN, RED, WARM TO TOUCH, AND WHEEPING.
[2024-09-17] MEDS ORDERED: Lactobacil 2-S.Thermo-Bifido 1 1 Cap PO SCH (21:00)
--- NOTE | 2024-09-18 04:09 | NUR ---
COMFORT SHIFT SUMMARY PATIENT HAS BEEN ALERT AND ORIENTED. PATIENT HAS HAD NO ACUTE EVENTS THIS SHIFT. PATIENT HAS COMPLAINED OF PAIN THIS SHIFT. PATIENT HAS HAD NO COMPLAINTS OF SOB, NAUSEA OR VOMITTING. PATIENT HAS BEEN TURNED WHEN ALLOWED. BED IN LOCKED AND LOWEST POSITION
[2024-09-18 04:59] LABS: BASOPHILS ABSOLUTE AUTO 0.04 K/mm3 (0.00-0.23); BASOPHILS PERCENT AUTO 0 % (0-2); EOSINOPHILS ABSOLUTE AUTO 0.08 K/mm3 (0.00-0.68); EOSINOPHILS PERCENT AUTO 1 % (0-6); Hematocrit 24.7 % (37.0-53.0); Hemoglobin 7.5 g/dL (13.5-17.5); IMMATURE GRAN ABSOLUTE AUTO 0.07 K/mm3 (0.00-0.10); IMMATURE GRAN PERCENT AUTO 1 % (0-1); LYMPHOCYTES ABSOLUTE AUTO 1.36 K/mm3 (0.84-5.20); LYMPHOCYTES PERCENT AUTO 13 % (21-46); MONOCYTES ABSOLUTE AUTO 0.64 K/mm3 (0.16-1.47); MONOCYTES PERCENT AUTO 6 % (4-13); Mean Corpuscular HGB 25.8 pg (26.0-34.0); Mean Corpuscular HGB Conc 30.4 g/dL (31.5-36.5); Mean Corpuscular Volume 85 fL (80-100); Mean Platelet Volume 8.3 fL (9.1-12.4); NEUTROPHILS ABSOLUTE AUTO 8.62 K/mm3 (1.96-9.15); NEUTROPHILS PERCENT AUTO 80 % (41-73); Platelet Count 297 K/mm3 (150-400); RDW Coefficient Variation 16.5 % (11.7-14.2); RDW Standard Deviation 51.2 fL (35.1-46.3); Red Blood Cell Count 2.91 M/mm3 (4.30-5.90); White Blood Cell Count 10.81 K/mm3 (4.00-11.30)
[2024-09-18 05:56] LABS: Albumin/Globulin Ratio 0.5 (0.8-1.8); Bilirubin, Total 0.5 mg/dL (0.1-1.0); Bun/Creatinine Ratio 20.5 (12.0-20.0); Calcium, Blood 8.2 mg/dL (8.5-10.1); Creatinine, Blood 1.12 mg/dL (0.60-1.20); Globulin, Blood 3.7 g/dL (2.2-4.0); Total Protein, Blood 5.7 g/dL (6.4-8.2)
[2024-09-18 15:31] LABS: Vancomycin, Trough 14.5 ug/mL (5.0-10.0)
--- NOTE | 2024-09-18 17:00 | NUR ---
DISCHARGE SUMMARY PT DISCHARGED HOME ON HOSPICE. TORREZ CATHETER LEFT IN PLACE FOR COMFORT, PATENT AND DRAINING CLEAR YELLOW URINE UPON DISCHARGE. IV REMOVED BY BREAK RN, SITE APPEARS WNL. HIRAL TRANSPORT, PACKET PROVIDED. DISCHARGE REVIEWED WITH PT, MAGUI ARAGON UPDATED FAMILY RE PT DISCHARGE.
== END 2024-09-18 17:06 | disposition hospice, home (50) | DRG 871 ==
LOC: ER 10:07 → MEDS 15:06 → ER 15:52 → MEDS 09-18 17:06
PROVIDERS: Emergency Medicine; Family Medicine; ADMIT Internal Medicine
DX: A41.9 Sepsis, unspecified organism (principal); G82.50 Quadriplegia, unspecified; J18.9 Pneumonia, unspecified organism; L03.116 Cellulitis of left lower limb; G95.29 Other cord compression; G93.49 Other encephalopathy; R65.20 Severe sepsis without septic shock; Z51.5 Encounter for palliative care; Z66 Do not resuscitate; D64.9 Anemia, unspecified; I25.10 Atherosclerotic heart disease of native coronary artery without angina pectoris; I73.9 Peripheral vascular disease, unspecified; I08.0 Rheumatic disorders of both mitral and aortic valves; I48.0 Paroxysmal atrial fibrillation; I87.2 Venous insufficiency (chronic) (peripheral); E03.9 Hypothyroidism, unspecified; F15.10 Other stimulant abuse, uncomplicated; L97.529 Non-pressure chronic ulcer of other part of left foot with unspecified severity; Z99.3 Dependence on wheelchair; Z95.5 Presence of coronary angioplasty implant and graft; Z79.890 Hormone replacement therapy
CPT/HCPCS: 0241U; 36415; 51702; 70450; 71045; 80053; 80202; 80320; 83605; 84145; 85025; 93005; 93010; 94760; 96374; 96375; 99285-25; A9270; J0456; J2405; J2543; J3010; J3370; J7040; J7050; J7120